=== PATIENT | male | born 1970 | race Caucasian/White ===

== ENCOUNTER 2016-06-19 14:11 | Inpatient (IN) ==
[2016-06-19] MEDS ORDERED: SODIUM CHLORIDE 0.9% 1,000 ML IV STA (16:38)
[2016-06-19 17:09] LABS: Basophils % 0.3 % (0.0-0.8); Eosinophils % 0.6 % (0.00-10.9); Hematocrit 43.2 VOL% (42.0-52.0); Hemoglobin 14.6 GM/DL (14.0-18.0); Immature Granulocytes % 0.3 %; Immature Granulocytes Absolute 0.01 #; Lymphocytes # 1.1 10*3/uL (1.4-4.0); Lymphocytes % 32.2 % (21.2-54.2); Mean Corpuscular HGB Conc 33.8 GM/DL (32-36); Mean Corpuscular Hemoglobin 28 PG (27-34); Mean Corpuscular Volume 82.6 FL (87-102); Mean Platelet Volume 9.2 FL (9.6-12.0); Monocytes # 0.4 10*3/uL (0.11-0.8); Monocytes % 12.6 % (1.7-12.7); Neutrophils # 1.9 10*3/uL (1.4-7.4); Platelet Count 138 T/CUMM (130-400); Red Blood Count 5.23 MC/CUMM (3.8-5.5); Red Cell Distribution Width 11.7 % (9.3-17.3); White Blood Count 3.4 T/CUMM (4-12)
[2016-06-19 17:29] LABS: Albumin 3.3 G/DL (3.4-5.0); Bilirubin,Total 0.7 MG/DL (0.2-1.0); Calcium 8.9 MG/DL (8.5-10.1); Magnesium 2.2 MG/DL (1.8-2.4); Osmolality,Calculated 283.4 MOS/KG (273-304); Potassium 4.7 MMOL/L (3.5-5.1); Total Protein 7.8 G/DL (6.4-8.3)
--- NOTE | 2016-06-19 17:38 | XRay Report ---
Referring Physician: Sudheer Harris Exam: XR chest 1V portable Date: June 19, 2016 at 4:46 PM Reason: Altered mental status Comparison: Chest 2 views June 14, 2016 Findings: The cardiac silhouette is normal in size. No focal consolidation, pneumothorax or pleural effusion is identified. No acute osseous process is seen. Impression: No acute cardiopulmonary process is identified. PROCEDURE INTERPRETED AT [facility] DEPARTMENT OF RADIOLOGY Final Report Signed by: Dr. Sary Ray
--- NOTE | 2016-06-19 17:39 | CT Report ---
History: Altered mental status. Confusion Date: 06/19/2016 Study: CT head without contrast Comparison exam: Head CT February 27, [address] sections were obtained through the head without IV contrast. This CT exam was performed using one or more the following dose reduction techniques: Automated exposure control, adjustment of the MA and/or KV according to patient size, or use of iterative reconstruction technique. The ventricles are midline in position without evidence of hydrocephalus. There is no mass or parenchymal hemorrhage. There is no gross CT evidence of acute cortical stroke. There is no extra-axial hematoma. There is no acute abnormality of the calvarium. The partially visualized paranasal sinuses and mastoid air cells are clear. Impression: No acute intracranial process PROCEDURE INTERPRETED AT [facility] DEPARTMENT OF RADIOLOGY Final Report Signed by: Dr. Estrella Rae
[2016-06-19 17:50] LABS: Apearance,Urine CLEAR (Clear); Bilirubin,Urine Negative (Negative); Blood, Urine Small mg/dL (Negative); Glucose,Urine (UA) >=500 mg/dL (Negative); Ketones,Urine 80 mg/dL (Negative); Mucus,Urine Occasional /LPF (Occasional); Nitrite,Urine Negative (Negative); Protein,Urine 100 MG/DL; RBC,Urine 7 /HPF (0-4); Squamous Epithelial Cell,Urine Occasional /HPF (0-10); Urine Color Yellow (Yellow); Urine Specific Gravity 1.023 (1.001-1.035); Urine Urobilinogen < 2.0 EU/DL (0.2-1.0); WBC,Urine 2 /HPF (0-6)
[2016-06-19] MEDS ORDERED: INSULIN REGULAR 100 UNIT/ML SUBCUT STA (18:24)
[2016-06-19 18:26] LABS: Barbiturates Screen,Urine Negative (Negative); Benzodiazepines Screen,Urine Negative (Negative); Cannabinoid Screen,Urine Negative (Negative); Opiate Screen,Urine Negative (Negative); Phencyclidine Screen,Urine Negative (Negative)
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
[2016-06-19] MEDS ORDERED: INSULIN REGULAR 100 UNIT/ML ONE ×2 (18:43→19:05)
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
[2016-06-19] MEDS ORDERED: SODIUM CHLORIDE 0.9% 1,000 ML IV ONE ×2 (19:06→22:34)
[2016-06-19] MEDS ORDERED: INSULIN REGULAR 100 UNIT/ML IV STA (19:06)
[2016-06-19] MEDS ORDERED: SODIUM BICARB INJ 100 MEQ in STERILE WATER INJ 400 ML IV PRN (22:34)
[2016-06-19] MEDS ORDERED: MAGNESIUM SULF RIDER 4 GM in PREMIX 1 EACH IV PRN (22:34)
[2016-06-19] MEDS ORDERED: DEXTROSE 50% 25 GM/50 ML VIAL IV PRN ×2 (22:34)
[2016-06-19] MEDS ORDERED: POTASSIUM CHLORIDE RIDER 10 MEQ in PREMIX 1 EACH IV PRN (22:34)
[2016-06-19] MEDS ORDERED: MAGNESIUM SULF RIDER 2 GM in PREMIX 1 EACH IV PRN (22:34)
[2016-06-19] MEDS ORDERED: ALBUTEROL 2.5 MG/3 ML NEB RESP TX PRN (22:34)
[2016-06-19] MEDS ORDERED: SODIUM PHOSPHATE INJ 14.7 MMOL in SODIUM CHLORIDE 0.9% 250 ML IV PRN (22:34)
[2016-06-19] MEDS ORDERED: ACETAMINOPHEN 325 MG TABLET PO PRN (22:34)
[2016-06-19] MEDS: SODIUM CHLORIDE 0.9% 1,000 ML IV SCH (22:53)
[2016-06-19] MEDS: LACOSAMIDE INJ 100 MG in SODIUM CHLORIDE 0.9% 50 ML IV SCH (23:27)
[2016-06-19 23:50] LABS: Osmolality,Calculated 280.7 MOS/KG (273-304)
[2016-06-20] LABS: Magnesium 1.9 MG/DL (1.8-2.4); Thyroid Stimulating Hormone 0.862 uIU/ml (0.358-3.74)
[2016-06-20] MEDS: ALBUTEROL/IPRATROPIUM 3 ML NEB RESP TX SCH ×7 (00:28→23:29)
[2016-06-20] MEDS: INSULIN REGULAR DRIP 100 ML IV SCH ×2 (00:29→08:20)
[2016-06-20] MEDS: SODIUM CHLORIDE 0.9% 1,000 ML IV SCH ×4 (00:29→06:32)
[2016-06-20] MEDS ORDERED: INSULIN REGULAR 100 UNIT/ML ONE (01:16)
[2016-06-20] MEDS: INSULIN REGULAR 100 UNIT/ML SUBCUT SCH ×2 (01:17→04:26)
[2016-06-20] MEDS ORDERED: SODIUM CHLORIDE 0.9% 1,000 ML IV SCH (01:37)
[2016-06-20] MEDS: ONDANSETRON 4 MG/2 ML VIAL IV PRN ×2 (02:23→13:38)
[2016-06-20] MEDS ORDERED: ALUMINUM/MAGNES/SIMETH MAX STR 30 ML UDCUP PO PRN (02:59)
[2016-06-20 05:34] LABS: Basophils % 0.2 % (0.0-0.8); Eosinophils % 0.2 % (0.00-10.9); Hematocrit 36.5 VOL% (42.0-52.0); Immature Granulocytes % 0.4 %; Immature Granulocytes Absolute 0.02 #; Lymphocytes # 0.7 10*3/uL (1.4-4.0); Lymphocytes % 13.8 % (21.2-54.2); Mean Corpuscular HGB Conc 32.9 GM/DL (32-36); Mean Corpuscular Hemoglobin 28 PG (27-34); Mean Corpuscular Volume 83.7 FL (87-102); Mean Platelet Volume 9.1 FL (9.6-12.0); Monocytes # 0.4 10*3/uL (0.11-0.8); Monocytes % 7.3 % (1.7-12.7); Neutrophils # 3.8 10*3/uL (1.4-7.4); Neutrophils % 78.1 % (38.7-73.9); Platelet Count 118 T/CUMM (130-400); Red Blood Count 4.36 MC/CUMM (3.8-5.5); Red Cell Distribution Width 11.9 % (9.3-17.3); White Blood Count 4.9 T/CUMM (4-12)
[2016-06-20 06:03] LABS: Calcium 7.7 MG/DL (8.5-10.1); Magnesium 1.9 MG/DL (1.8-2.4); Osmolality,Calculated 288.4 MOS/KG (273-304); Potassium 4.5 MMOL/L (3.5-5.1)
[2016-06-20 06:12] LABS: Albumin 2.6 G/DL (3.4-5.0); Bilirubin,Total 0.6 MG/DL (0.2-1.0); Calcium 7.7 MG/DL (8.5-10.1); Magnesium 1.9 MG/DL (1.8-2.4); Osmolality,Calculated 287.4 MOS/KG (273-304); Potassium 4.5 MMOL/L (3.5-5.1); Total Protein 6.1 G/DL (6.4-8.3)
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
[2016-06-20 07:33] LABS: ABG Base Excess -5.9 MMOL/L (-2.5-2.5); ABG HCO3 19.7 MMOL/L (20-26); ABG Oxygen Saturation 96.8 % (95-100); ABG PCO2 38.9 MM HG (35-48); ABG PH 7.322 (7.35-7.45); ABG PO2 95.4 MM HG (80-95); ABG TCO2 20.9 MMOL/L (23-27)
[2016-06-20] MEDS ORDERED: INSULIN REGULAR 100 UNIT/ML IV SCH (08:00)
[2016-06-20] MEDS: SODIUM CHLORIDE 0.45% 2,000 ML IV SCH ×2 (08:10→13:52)
[2016-06-20 08:55] LABS: Calcium 7.9 MG/DL (8.5-10.1); Osmolality,Calculated 287.3 MOS/KG (273-304); Potassium 4.2 MMOL/L (3.5-5.1)
[2016-06-20] MEDS ORDERED: POTASSIUM PHOSPHATE 30 MMOL in SODIUM CHLORIDE 0.9% 250 ML IV ONE (09:00)
[2016-06-20] MEDS: PANTOPRAZOLE 40 MG TABLET PO SCH (09:56)
[2016-06-20] MEDS: AZITHROMYCIN 250 MG TABLET PO SCH (09:56)
[2016-06-20] MEDS: LACOSAMIDE INJ 100 MG in SODIUM CHLORIDE 0.9% 50 ML IV SCH ×2 (10:00→20:14)
[2016-06-20] MEDS: DEXTROSE 5% NACL 0.45% 1,000 ML IV SCH ×2 (10:30→19:38)
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
--- NOTE | 2016-06-20 13:14 | Hospitalist Progress Note ---
Assessment and Plan (1) Nausea & vomiting Status: Acute Assessment and plan: galo clemente, Dr. Rae to see, clear liquids Current Visit: Yes (2) Uncontrolled diabetes mellitus Status: Chronic Assessment and plan: gap has widened, restart insulin drip and add D5 to flluid through protocol Current Visit: No Qualifiers: Diabetes mellitus type: type 1 Diabetes mellitus complication detail: with peripheral angiopathy with gangrene (3) Diabetic foot ulcer Status: Chronic Assessment and plan: wound care consult Current Visit: No (4) Dehydration Status: Acute Assessment and plan: cont 1/2 ns at 250 ml/hr Current Visit: No (5) Seizure disorder Status: Acute Assessment and plan: cont vimpat 100 mg IV bid Current Visit: Yes (6) Neutropenia Status: Inactive Assessment and plan: Pancytopenia due to illness per Dr. Ocampo no further workup Current Visit: No (7) Bronchitis Status: Acute Assessment and plan: cont azithromycin, no steroids, duonebs Current Visit: Yes (8) Hypotension Status: Acute Assessment and plan: resolved with hydration Current Visit: No Hospitalist: Subjective Interval history: Patient's insulin drip was discontinued last night which worsened his DKA. Sliding scale insulin is not appropriate for somebody in DKA. His gap has widened and I put him back on insulin drip and added D5 to his fluids. Until his Closes he is not to be taken off an insulin drip. We will feed him clear liquids today. Dr. Rae is yet to see him patients still feels very nauseated today Exam - Constitutional Vitals: Period Temp Pulse Resp BP Sys/Cummings Pulse Ox Last 24 Hr 98.8 F-100.9 F 78-101 16-29 93-154/49-89 94-100 Exam: Heart Rate-[tachy ] Lungs-[CTAB] GI-[+bs soft, NT] Ext-[no edema] Neuro [Motor 5/5], [alert and oriented times 3] psych [normal mood and affect] General [no acute distress] Results - Labs CBC & BMP: 06/20/16 05:21 06/20/16 08:09 Lab Results: I have reviewed the past 24 hour labs
[2016-06-20] MEDS ORDERED: SODIUM CHLORIDE 0.45% 1,000 ML IV SCH (13:37)
[2016-06-20 14:22] LABS: Calcium 7.5 MG/DL (8.5-10.1); Osmolality,Calculated 280.5 MOS/KG (273-304)
[2016-06-20] MEDS: SODIUM CHLORIDE 0.45% 1,000 ML IV SCH ×2 (15:30→22:08)
[2016-06-20] MEDS: INSULIN GLARGINE 100 UNIT/ML SUBCUT SCH ×2 (17:28→17:29)
[2016-06-20] MEDS ORDERED: INSULIN LISPRO 100 UNIT/ML SUBCUT SCH ×3 (18:00→20:30)
[2016-06-20 20:11] LABS: Calcium 7.3 MG/DL (8.5-10.1); Osmolality,Calculated 282.7 MOS/KG (273-304); Potassium 4.2 MMOL/L (3.5-5.1)
[2016-06-20] MEDS: BENZONATATE 100 MG CAPSULE PO PRN (20:14)
[2016-06-20] MEDS ORDERED: INSULIN GLARGINE 100 UNIT/ML SUBCUT SCH (21:00)
[2016-06-21] MEDS: INSULIN LISPRO 100 UNIT/ML SUBCUT SCH ×6 (00:42→17:20)
[2016-06-21] MEDS: ALBUTEROL/IPRATROPIUM 3 ML NEB RESP TX SCH ×5 (03:54→18:58)
[2016-06-21] MEDS: SODIUM CHLORIDE 0.45% 1,000 ML IV SCH ×3 (04:59→09:47)
[2016-06-21 07:52] LABS: Basophils % 0.2 % (0.0-0.8); Eosinophils # 0.1 10*3/uL (0.0-0.87); Eosinophils % 1.9 % (0.00-10.9); Hematocrit 33.8 VOL% (42.0-52.0); Hemoglobin 11.7 GM/DL (14.0-18.0); Immature Granulocytes % 0.2 %; Immature Granulocytes Absolute 0.01 #; Lymphocytes # 1.5 10*3/uL (1.4-4.0); Lymphocytes % 30.2 % (21.2-54.2); Mean Corpuscular HGB Conc 34.6 GM/DL (32-36); Mean Corpuscular Hemoglobin 28 PG (27-34); Mean Corpuscular Volume 79.3 FL (87-102); Mean Platelet Volume 9.3 FL (9.6-12.0); Monocytes # 0.4 10*3/uL (0.11-0.8); Monocytes % 8.3 % (1.7-12.7); Neutrophils # 2.9 10*3/uL (1.4-7.4); Neutrophils % 59.2 % (38.7-73.9); Platelet Count 131 T/CUMM (130-400); Red Blood Count 4.26 MC/CUMM (3.8-5.5); Red Cell Distribution Width 11.9 % (9.3-17.3); White Blood Count 4.8 T/CUMM (4-12)
[2016-06-21 08:15] LABS: Band Neutrophils 2 % (0-10); Eosinophils 2 % (0-10); Hypochromasia 1+; Lymphocytes 33 % (20-55); Ovalocytes Slight; Platelet Estimate Normal; Segmented Neutrophils 57 % (50-85); Total Cells Counted 100
[2016-06-21 08:19] LABS: Calcium 7.8 MG/DL (8.5-10.1); Osmolality,Calculated 273.8 MOS/KG (273-304); Potassium 3.9 MMOL/L (3.5-5.1)
[2016-06-21] MEDS: PANTOPRAZOLE 40 MG TABLET PO SCH (09:46)
[2016-06-21] MEDS: AZITHROMYCIN 250 MG TABLET PO SCH (09:46)
[2016-06-21] MEDS: INSULIN GLARGINE 100 UNIT/ML SUBCUT SCH ×2 (09:46→21:49)
[2016-06-21] MEDS: BENZONATATE 100 MG CAPSULE PO PRN ×2 (09:46→18:15)
[2016-06-21] MEDS: LACOSAMIDE INJ 100 MG in SODIUM CHLORIDE 0.9% 50 ML IV SCH (10:11)
[2016-06-21] MEDS: ONDANSETRON 4 MG/2 ML VIAL IV PRN (10:37)
--- NOTE | 2016-06-21 12:21 | Hospitalist Progress Note ---
Assessment and Plan (1) Nausea & vomiting Status: Acute Assessment and plan: Improving Dr. Rae will do an EGD today. Current Visit: Yes (2) Uncontrolled diabetes mellitus Status: Chronic Assessment and plan: Blood sugars better controlled continue Lantus 25 units twice a day Current Visit: No Qualifiers: Diabetes mellitus type: type 1 Diabetes mellitus complication detail: with peripheral angiopathy with gangrene (3) Diabetic foot ulcer Status: Chronic Assessment and plan: Chronic no evidence of acute infection Current Visit: No (4) Dehydration Status: Acute Assessment and plan: Resolved Current Visit: No (5) Seizure disorder Status: Acute Assessment and plan: cont vimpat 100 mg po bid Current Visit: Yes (6) Neutropenia Status: Inactive Assessment and plan: Resolved. Dr. Blakely thinks that she is due to the acute illness Current Visit: No (7) Bronchitis Status: Acute Assessment and plan: cont azithromycin, no steroids, duonebs Current Visit: Yes (8) Hypotension Status: Acute Assessment and plan: resolved with hydration Current Visit: No (9) Homicidal ideation Status: Acute Assessment and plan: Continue one-to-one sitter, ready to go to psychiatric facility tomorrow. Current Visit: Yes Hospitalist: Subjective Interval history: Patient reports still be nauseated. We will he will remain with a sitter. He is willing to go to [place] for counseling. Patient will get an EGD today. He will be ready to discharge to psych in a.m. His DKA has resolved. His dehydration has resolved. Exam - Constitutional Vitals: Period Temp Pulse Resp BP Sys/Cummings Pulse Ox Last 24 Hr 99 F-100.0 F 84-109 12-35 99-152/56-99 93-100 Exam: Heart Rate-[tachy ] Lungs-[CTAB] GI-[+bs soft, NT] Ext-[no edema] Neuro [Motor 5/5], [alert and oriented times 3] psych [normal mood and affect] General [no acute distress] Results - Labs CBC & BMP: 06/21/16 07:40 06/21/16 07:40 Lab Results: I have reviewed the past 24 hour labs Labs: Blood cultures negative no growth
--- NOTE | 2016-06-21 13:01 | History and Physical Update ---
History and Physical Update - History and Physical H&P was reviewed, the patient examined and there: are no changes in the patients condition since last H&P was completed. - Physical Exam Mental Status: alert and oriented Heart: regular rate and rhythm Lung: clear to auscultation Abdomen: within normal limits Vitals: within normal limits
--- NOTE | 2016-06-21 13:04 | Operative Note ---
Date of procedure: 06/21/16 Pre-op diagnosis: Nausea/vomiting, atypical chest pain Procedure: Procedure: Esophagogastroduodenoscopy Brief clinical abstract: Patient is a 46-year-old male who has had recent nausea /vomiting and epigastric/atypical chest pain over the last week. Liver tests have been normal. No gross GI bleeding has been noted. Indication for procedure: Recurrent nausea/vomiting, atypical chest pain Endoscopic findings:[After informed consent was obtained, the patient was placed in the left lateral decubitus position. The gastroscope was inserted in the upper esophagus under direct vision with no resistance encountered. Esophageal mucosa appeared normal with squamocolumnar junction sharply demarcated above a small hiatal hernia. The endoscope was advanced in the stomach which was carefully examined including retroflexed view of the cardia and fundus with no abnormality seen. The pyloric channel, duodenal bulb, second and third portion of the duodenum were normal. The endoscope was withdrawn and no other abnormalities were visualized. Impression: Small hiatal hernia-otherwise normal EGD Recommendations: Ultrasound gallbladder/upper abdomen. Could try to advance diet. Anesthesia: MAC Surgeon / Physician: Roosevelt Rae Estimated blood loss: none Specimens: none sent Condition: stable Disposition: post procedure unit Results - Labs CBC & BMP: 06/21/16 07:40 06/21/16 07:40 Discharge Plan - Discharge Medications No Action Albuterol Inhaler [Proventil Inhaler] 2 puff INH Q4H PRN #1 inhaler PRN Reason: Shortness Of Breath/Wheezing Azithromycin Tab [Zithromax Tab] 250 mg PO DAILY Lacosamide Tab [Vimpat Tab] 100 mg PO BID #120 tablet Insulin Glargine [Lantus] 25 unit SUBCUT BID Insulin Regular [HumuLIN R] 10 unit SUBCUT TIDAC Benzonatate [Tessalon] 100 mg PO TID PRN #30 capsule PRN Reason: Cough - Follow Up or Referral - Forms/Instructions
[2016-06-21] MEDS ORDERED: PROPOFOL 200 MG/20 ML VIAL IV ONE (13:07)
[2016-06-21] MEDS ORDERED: LIDOCAINE 2% 5 ML VIAL ONE (13:07)
--- NOTE | 2016-06-21 13:43 | Anesthesia Post-Op ---
Anesthesia Post OP - Post Ansesthetic Evaluation Patient seen in post op: Yes Resp: within normal limits CV: within normal limits Mental: within normal limits Temp: within normal limits Xrza-Eq-Vagegjztb: within normal limits Nausea and Vomiting: within normal limits Pain: within normal limits
[2016-06-21] MEDS: LACOSAMIDE 50 MG TABLET PO SCH ×2 (15:29→21:48)
--- NOTE | 2016-06-21 16:06 | Ultrasound Report ---
Referring Physician: Alexus Mauricio Exam: US abdomen limited Date: June 21, 2016 Reason: Persistent nausea Comparison: Abdominal ultrasound February 28, 2016 Technique: Grayscale ultrasound images of the right abdomen were obtained. Ultrasound images were captured and stored. Findings: The liver measures 14.5 cm in length. No suspicious hepatic lesion is identified. No gallstones are seen. No abnormal gallbladder wall thickening or pericholecystic fluid is identified. The common bile duct is normal in size, measuring 0.2 cm in diameter. The pancreas is largely obscured by bowel gas. The right kidney measures 12.5 x 6.6 x 5.7 cm. No right hydronephrosis or suspicious renal lesion is identified. The IVC and abdominal aorta are largely obscured by bowel gas. No ascites is seen. Impression: No acute abdominal process is identified. PROCEDURE INTERPRETED AT [facility] DEPARTMENT OF RADIOLOGY Final Report Signed by: Dr. Sary Ray
[2016-06-22] MEDS: ALBUTEROL/IPRATROPIUM 3 ML NEB RESP TX SCH ×5 (00:20→14:21)
[2016-06-22] MEDS: INSULIN LISPRO 100 UNIT/ML SUBCUT SCH ×2 (02:20→07:30)
[2016-06-22] MEDS: BENZONATATE 100 MG CAPSULE PO PRN ×2 (02:47→09:26)
--- NOTE | 2016-06-22 08:09 | Nuclear Medicine Report ---
NM hepatobiliary Indication: Persistent nausea and vomiting. Comparison: None. Technique: Following intravenous administration of 5 millicuries of technetium 99m labeled Choletec, planar imaging in anterior projection was performed at regular intervals through 60 minutes. Following this, a total of 1.4 micrograms of sincalide were administered intravenously and time activity curve was plotted during gallbladder emptying. Findings: Normal distribution of Choletec is demonstrated within the liver parenchyma. Homogeneous activity is present. Concentration and excretion of Choletec via the biliary system into the small bowel appears within normal limits. The gallbladder is noted to fill by 10 minutes postinjection. No emptying of the gallbladder is demonstrated at 20 minutes post injection of CCK. Impression: 1. There is no evidence of cystic duct obstruction or obstruction of the extrahepatic bile duct. No significant emptying of the gallbladder occurs following injection of CCK and differential considerations include nonfasting state, recent pain medication, as well as chronic cholecystitis. 06/22/2016 8:05 AM PROCEDURE INTERPRETED AT [facility] DEPARTMENT OF RADIOLOGY Final Report Signed by: Dr. Hugh Stoddard
[2016-06-22 08:18] LABS: Basophils % 0.3 % (0.0-0.8); Eosinophils # 0.1 10*3/uL (0.0-0.87); Eosinophils % 2.4 % (0.00-10.9); Hematocrit 35.7 VOL% (42.0-52.0); Hemoglobin 12.1 GM/DL (14.0-18.0); Immature Granulocytes % 0.3 %; Immature Granulocytes Absolute 0.01 #; Lymphocytes # 1.2 10*3/uL (1.4-4.0); Lymphocytes % 31.2 % (21.2-54.2); Mean Corpuscular HGB Conc 33.9 GM/DL (32-36); Mean Corpuscular Hemoglobin 28 PG (27-34); Mean Corpuscular Volume 81.7 FL (87-102); Mean Platelet Volume 8.9 FL (9.6-12.0); Monocytes # 0.3 10*3/uL (0.11-0.8); Monocytes % 7.8 % (1.7-12.7); Neutrophils # 2.2 10*3/uL (1.4-7.4); Platelet Count 156 T/CUMM (130-400); Red Blood Count 4.37 MC/CUMM (3.8-5.5); Red Cell Distribution Width 11.7 % (9.3-17.3); White Blood Count 3.7 T/CUMM (4-12)
[2016-06-22 08:45] LABS: Band Neutrophils 2 % (0-10); Eosinophils 4 % (0-10); Lymphocytes 25 % (20-55); Segmented Neutrophils 62 % (50-85); Total Cells Counted 100
[2016-06-22 08:46] LABS: Hypochromasia 1+; Ovalocytes Slight; Platelet Estimate Normal
--- NOTE | 2016-06-22 08:59 | Gastrointestinal Progress Note ---
<KalibisiDona Bayron - Last Filed: 06/22/16 08:57> Assessment and Plan (1) Nausea & vomiting Status: Acute Assessment and plan: 06/22-nausea and vomiting resolved. No reports abdominal pain. Tolerating diet. Ultrasound and HIDA scan results noted. Plan an addendum to followed by Dr. Rae. 06/20-several day history of nausea and vomiting with abdominal pain and associated symptoms of bronchitis and cough. Negative head CT. Recent NSAID use. No prior endoscopy in the past. Plan an addendum to followed by Dr. Rae. Current Visit: Yes Gastroenterology - PN: Subj Interval history: CC: Nausea, vomiting, atypical chest pain Patient is seen awake and alert sitting up in bed. States he is feeling some better at this time. He states his nausea, vomiting and epigastric pain is resolved at this time. His main complaint is just some chest wall pain due to his constant coughing related to bronchitis. EGD on yesterday showed small hiatal hernia otherwise normal findings. Gallbladder ultrasound was noted to be negative however HIDA scan is noted to show no emptying of the gallbladder. Abdomen soft, nontender. He is tolerating full liquid diet at present time. ROS: Denies shortness of breath or chest pain Exam (Progress Note) - Constitutional Vitals: Period Temp Pulse Resp BP Sys/Cummings Pulse Ox Last 24 Hr 97.0 F-98.8 F 88-106 14-26 124-157/72-99 93-100 General appearance: normal weight, no acute distress - Head Head exam: Present: normal inspection, normocephalic - Eye Eye exam: Present: other (Lids and conjunctive are unremarkable). Absent: scleral icterus - ENT ENT exam: Present: normal exam, normal oropharynx - Neck Neck exam: Present: normal inspection - Respiratory Respiratory exam: Present: clear to auscultation bilaterally. Absent: rales, rhonchi, wheezes - Cardiovascular Cardiovascular exam: Present: regular rate and rhythm. Absent: diastolic murmur , JVD, systolic murmur - GI/Abdominal GI/Abdominal exam: Present: normal bowel sounds, soft. Absent: ascites, distended, mass, organomegaly, tenderness - Extremities Exam Extremities exam: Present: normal inspection, full ROM - Back Exam Back exam: Present: normal inspection - Neurological Exam Neurological exam: Present: alert, oriented X3 - Psychiatric Psychiatric exam: Present: normal affect, normal mood - Skin Skin exam: Present: normal color, warm, dry Results - Labs CBC & BMP: 06/22/16 08:04 06/21/16 07:40 Lab Results: I have reviewed the past 24 hour labs <Roosevelt Rae - Last Filed: 06/22/16 13:43> Exam (Progress Note) - Constitutional Vitals: Period Temp Pulse Resp BP Sys/Cummings Pulse Ox Last 24 Hr 97.0 F-98.8 F 90-106 16-20 127-157/72-95 93-100 Results - Labs CBC & BMP: 06/22/16 08:04 06/21/16 07:40
[2016-06-22] MEDS: LACOSAMIDE 50 MG TABLET PO SCH (09:26)
[2016-06-22] MEDS: PANTOPRAZOLE 40 MG TABLET PO SCH (09:26)
[2016-06-22] MEDS: AZITHROMYCIN 250 MG TABLET PO SCH (09:26)
[2016-06-22] MEDS: INSULIN GLARGINE 100 UNIT/ML SUBCUT SCH (09:32)
[2016-06-22] MEDS ORDERED: DIPHENOXYLATE/ATROPINE 2.5-0.025 MG TABLET PO PRN (09:56)
--- NOTE | 2016-06-22 10:08 | Discharge Summary ---
Hospital Course - Hospital Course Hospital Course: 46-year-old male presents multiple times to the emergency room with complaints of nausea and vomiting and confusion. This is the third visit to the emergency room this week. His Kayy gives a history that patient was recently diagnosed with bronchitis and was started on azithromycin. He has not been taking his insulin due to not eating well. Repeat chest x-ray in the emergency room shows no evidence of pneumonia. His nausea and vomiting thought initially was due to DKA. Patient was in DKA on admission but was reversed with IV fluids and IV insulin. His blood sugars are now well controlled on Lantus twice a day. Patient's nausea and vomiting did not completely resolve when he was no longer in DKA. I consult Dr. Rae to see him. An EGD was performed on 06/21/16 which showed only a mild hiatal hernia but nothing to explain his continuous nausea. Dr. Rae ordered an ultrasound of the gallbladder which looked normal. HIDA scan was performed and it was also normal. He had a normal lipase and is nontender on exam. We will advance patient to a soft diet which she is tolerating well. Patient also has a history of neutropenia. He was seen by Dr. Ocampo from hematology who feels this is secondary to illness only and no further workup is necessary. Patient has a chronic diabetic foot ulcer that is not actively infected. Patient was hypotensive on admission due to dehydration but that is completely resolved. Patient's DKA is resolved and he has been out of the unit in stable. Patient has a chronic seizure disorder that is well controlled on Vimpat. Patient has problems with both depression and anxiety and his reports the patient is having daily episodes thinking he is somebody else. He also has been reading biblical texts which talk about sacrifice and acts on these impulses. Patient' s has had to hide the knives as he talks about stabbing people. We dont have a psychiatrist available to see patients and I am not qualified to handle psychiatric patients with these problems. Because of his medical issues most psychiatric facilities are uncomfortable handling patients on insulin. Patient is medically stable and ready for transfer to psychiatric facility today. - Time spent with patient Time with patient DS: Greater than 30 minutes (50 min) Diagnosis - Discharge Diagnosis (1) Nausea & vomiting Status: Acute (2) Uncontrolled diabetes mellitus Status: Chronic (3) Diabetic foot ulcer Status: Chronic (4) Dehydration Status: Acute (5) Seizure disorder Status: Acute (6) Neutropenia Status: Inactive (7) Bronchitis Status: Acute (8) Hypotension Status: Acute (9) Homicidal ideation Status: Acute Discharge Plan - Discharge Data Disposition: Disch/Xfer to Psych Hos Condition at Discharge: Stable Discharge Diet: diabetic diet Activity: resume usual activities as tolerated Hygiene: no restrictions Weight Bearing at Discharge: full weight bearing - Discharge Medications New Diphenoxylate/Atrop 2.5-0.025 [Lomotil Tab] 1 tablet PO Q4H PRN #0 tablet PRN Reason: Diarrhea Insulin Glargine [Lantus] 25 unit SUBCUT DAILY unit Ondansetron Inj [Zofran Inj] 4 mg IV Q4H PRN #0 vial PRN Reason: Nausea Pantoprazole Tab [Protonix Tab] 40 mg PO DAILY tablet Alum/Mag/Simeth Max Str Liquid [Mylanta Max Strength Liquid] 30 ml PO Q4H PRN #0 PRN Reason: Dyspepsia Continue Albuterol Inhaler [Proventil Inhaler] 2 puff INH Q4H PRN #1 inhaler PRN Reason: Shortness Of Breath/Wheezing Azithromycin Tab [Zithromax Tab] 250 mg PO DAILY Lacosamide Tab [Vimpat Tab] 100 mg PO BID #120 tablet Benzonatate [Tessalon] 100 mg PO TID PRN #30 capsule PRN Reason: Cough Changed Insulin Glargine [Lantus] 17 unit SUBCUT QPM #0 Discontinued Insulin Regular [HumuLIN R] 10 unit SUBCUT TIDAC - Follow Up or Referral - Forms/Instructions Exam - Constitutional Vitals: Period Temp Pulse Resp BP Sys/Cummings Pulse Ox Last 24 Hr 97.0 F-98.8 F 88-106 14-26 127-157/72-99 93-100 General appearance: normal weight, no acute distress - Respiratory Respiratory exam: Present: clear to auscultation bilaterally. Absent: rhonchi, wheezes - Cardiovascular Cardiovascular exam: Present: regular rate and rhythm. Absent: systolic murmur - GI/Abdominal GI/Abdominal exam: Present: normal bowel sounds, soft. Absent: tenderness - Extremities Exam Extremities exam: Present: normal inspection, normal capillary refill - Neurological Exam Neurological exam: Present: alert, oriented X3. Absent: motor sensory deficit - Psychiatric Psychiatric exam: Present: depressed, flat affect Discharge Results Labs on day of discharge: Labs from last 24 hours 06/22/16 06/22/16 06/22/16 08:04 08:04 07:59 WBC 3.7 L RBC 4.37 Hgb 12.1 L Hct 35.7 L MCV 81.7 L MCH 28 MCHC 33.9 RDW 11.7 Plt Count 156 MPV 8.9 L Neut % (Auto) 58.0 Lymph % (Auto) 31.2 [place] % (Auto) 7.8 Eos % (Auto) 2.4 Baso % (Auto) 0.3 Neut # (Auto) 2.2 Lymph # (Auto) 1.2 L [place] # (Auto) 0.3 Eos # (Auto) 0.1 Baso # (Auto) 0.0 Total Counted 100 Immature Gran % 0.3 Nucleated RBC % 0.0 Immature Gran # 0.01 Segmented Neutrophils 62 Band Neutrophils 2 Lymphocytes 25 Monocytes 7 Eosinophils 4 Nucleated RBCs # 0.00 Platelet Estimate Normal Hypochromasia 1+ Ovalocytes Slight Morphology Comment POC Glucose 207 H Lipase 94.0 06/22/16 06/22/16 06/21/16 05:01 01:07 23:52 WBC RBC Hgb Hct MCV MCH MCHC RDW Plt Count MPV Neut % (Auto) Lymph % (Auto) [place] % (Auto) Eos % (Auto) Baso % (Auto) Neut # (Auto) Lymph # (Auto) [place] # (Auto) Eos # (Auto) Baso # (Auto) Total Counted Immature Gran % Nucleated RBC % Immature Gran # Segmented Neutrophils Band Neutrophils Lymphocytes Monocytes Eosinophils Nucleated RBCs # Platelet Estimate Hypochromasia Ovalocytes Morphology Comment POC Glucose 162 H 100 52 L Lipase 06/21/16 06/21/16 20:06 17:33 WBC RBC Hgb Hct MCV MCH MCHC RDW Plt Count MPV Neut % (Auto) Lymph % (Auto) [place] % (Auto) Eos % (Auto) Baso % (Auto) Neut # (Auto) Lymph # (Auto) [place] # (Auto) Eos # (Auto) Baso # (Auto) Total Counted Immature Gran % Nucleated RBC % Immature Gran # Segmented Neutrophils Band Neutrophils Lymphocytes Monocytes Eosinophils Nucleated RBCs # Platelet Estimate Hypochromasia Ovalocytes Morphology Comment POC Glucose 132 H 109 H Lipase DS: Provider Date of admission: 06/20/16 13:10 Primary care physician: . No PCP Attending physician on admission: Alexus Mauricio MD Discharging clinician: Alexus Mauricio MD
[2016-06-22] MEDS: ONDANSETRON 4 MG/2 ML VIAL IV PRN (10:52)
[2016-06-22 15:46] VITALS: BP 121/71
== END 2016-06-22 15:45 | DRG 420 ==
LOC: N.ED 14:11 → N.EDINP 14:11 → N.CC 22:33 → N.4E 06-21 13:55
PROVIDERS: ADMIT Internal Medicine; ATTEND Internal Medicine

== ENCOUNTER 2016-12-03 14:50 | Observation (INO) ==
[2016-12-03] MEDS ORDERED: SODIUM CHLORIDE 0.9% 1,000 ML IV STA (15:25)
[2016-12-03 15:52] LABS: ABG Base Excess 0.6 MMOL/L (-2.5-2.5); ABG Oxygen Saturation 97.8 % (95-100); ABG PCO2 50.7 MM HG (35-48); ABG PH 7.338 (7.35-7.45); ABG TCO2 24.4 MMOL/L (23-27)
[2016-12-03 16:03] LABS: Basophils # 0.1 10*3/uL (0.0-0.2); Basophils % 0.7 % (0.0-0.8); Eosinophils # 0.2 10*3/uL (0.0-0.87); Eosinophils % 2.9 % (0.00-10.9); Hematocrit 34.4 VOL% (42.0-52.0); Immature Granulocytes % 0.3 %; Immature Granulocytes Absolute 0.02 #; Lymphocytes # 1.2 10*3/uL (1.4-4.0); Lymphocytes % 16.7 % (21.2-54.2); Mean Corpuscular HGB Conc 34.9 GM/DL (32-36); Mean Corpuscular Hemoglobin 28 PG (27-34); Mean Corpuscular Volume 80.4 FL (87-102); Mean Platelet Volume 9.1 FL (9.6-12.0); Monocytes # 0.5 10*3/uL (0.11-0.8); Neutrophils # 5.2 10*3/uL (1.4-7.4); Neutrophils % 72.4 % (38.7-73.9); Platelet Count 149 T/CUMM (130-400); Red Blood Count 4.28 MC/CUMM (3.8-5.5); White Blood Count 7.2 T/CUMM (4-12)
[2016-12-03 16:12] LABS: Apearance,Urine CLEAR (Clear); Bilirubin,Urine Negative (Negative); Blood, Urine Small mg/dL (Negative); Glucose,Urine (UA) >=500 mg/dL (Negative); Hyaline Casts,Urine 2 /LPF (0-3); Ketones,Urine Negative (Negative); Mucus,Urine Occasional /LPF (Occasional); Nitrite,Urine Negative (Negative); Protein,Urine 30 MG/DL; RBC,Urine 1 /HPF (0-4); Sperm,Urine Occasional /HPF (Negative); Urine Color Straw (Yellow); Urine Specific Gravity 1.006 (1.001-1.035); Urine Urobilinogen < 2.0 EU/DL (0.2-1.0); WBC,Urine 1 /HPF (0-6)
[2016-12-03 16:18] LABS: Barbiturates Screen,Urine Negative (Negative); Benzodiazepines Screen,Urine Negative (Negative); Cannabinoid Screen,Urine Negative (Negative); Opiate Screen,Urine Negative (Negative); Phencyclidine Screen,Urine Negative (Negative)
[2016-12-03 16:23] LABS: Ammonia 17 UMOL/L (11-32)
[2016-12-03 16:27] LABS: Lactic Acid 1.6 MMOL/L (0.4-2.0)
[2016-12-03 16:29] LABS: Alanine Aminotransferase 18 U/L (16-61); Albumin 3.5 G/DL (3.4-5.0); Alkaline Phosphatase 113 U/L (45-117); Aspartate Amino Transferase 14 U/L (0-37); Blood Urea Nitrogen 22 MG/DL (7-18); Calcium 8.8 MG/DL (8.5-10.1); Glucose 110 MG/DL (74-106); Osmolality,Calculated 276.8 MOS/KG (273-304); Potassium 3.5 MMOL/L (3.5-5.1); Sodium 137 MMOL/L (136-145); Total Protein 7.3 G/DL (6.4-8.3); Troponin I Only < 0.015 NG/ML (0.00-0.045)
[2016-12-03] MEDS ORDERED: ACETAMINOPHEN 325 MG TABLET PO PRN (18:26)
[2016-12-03] MEDS ORDERED: PROMETHAZINE 25 MG TABLET PO PRN (18:26)
[2016-12-03] MEDS ORDERED: ONDANSETRON 4 MG/2 ML VIAL IV PRN (18:26)
[2016-12-03] MEDS ORDERED: tiZANidine 4 MG TABLET PO PRN (18:30)
[2016-12-03] MEDS ORDERED: BENZONATATE 100 MG CAPSULE PO PRN (18:30)
[2016-12-03] MEDS ORDERED: DEXTROSE 50% 25 GM/50 ML VIAL IV PRN (18:30)
[2016-12-03] MEDS ORDERED: GLUCAGON 1 MG VIAL IM PRN (18:30)
[2016-12-03] MEDS: SODIUM CHLORIDE 0.9% 1,000 ML IV SCH (20:18)
[2016-12-03] MEDS: ENOXAPARIN 40 MG/0.4 ML SYRINGE SUBCUT SCH (20:34)
[2016-12-03] MEDS: LACOSAMIDE 50 MG TABLET PO SCH (20:35)
[2016-12-03] MEDS: ROSUVASTATIN 10 MG TABLET PO SCH (20:35)
[2016-12-03] MEDS: GABAPENTIN 300 MG CAPSULE PO SCH (20:37)
[2016-12-03] MEDS: INSULIN REGULAR 100 UNIT/ML SUBCUT SCH (22:45)
[2016-12-04] MEDS: SODIUM CHLORIDE 0.9% 1,000 ML IV SCH ×2 (06:14→16:45)
[2016-12-04 06:15] LABS: Basophils # 0.1 10*3/uL (0.0-0.2); Basophils % 0.9 % (0.0-0.8); Eosinophils # 0.3 10*3/uL (0.0-0.87); Eosinophils % 5.2 % (0.00-10.9); Hematocrit 35.1 VOL% (42.0-52.0); Hemoglobin 12.3 GM/DL (14.0-18.0); Immature Granulocytes % 0.2 %; Immature Granulocytes Absolute 0.01 #; Lymphocytes # 1.5 10*3/uL (1.4-4.0); Lymphocytes % 26.1 % (21.2-54.2); Mean Corpuscular Hemoglobin 28 PG (27-34); Mean Corpuscular Volume 80.7 FL (87-102); Mean Platelet Volume 9.9 FL (9.6-12.0); Monocytes # 0.4 10*3/uL (0.11-0.8); Monocytes % 7.2 % (1.7-12.7); Neutrophils # 3.4 10*3/uL (1.4-7.4); Neutrophils % 60.4 % (38.7-73.9); Platelet Count 185 T/CUMM (130-400); Red Blood Count 4.35 MC/CUMM (3.8-5.5); Red Cell Distribution Width 12.2 % (9.3-17.3); White Blood Count 5.6 T/CUMM (4-12)
[2016-12-04 06:44] LABS: Calcium 8.7 MG/DL (8.5-10.1); Osmolality,Calculated 282.3 MOS/KG (273-304); Potassium 4.1 MMOL/L (3.5-5.1)
[2016-12-04] MEDS: INSULIN REGULAR 100 UNIT/ML SUBCUT SCH ×6 (08:31→21:16)
[2016-12-04] MEDS: LACOSAMIDE 50 MG TABLET PO SCH ×2 (08:56→21:14)
[2016-12-04] MEDS: PANTOPRAZOLE 40 MG TABLET PO SCH (08:56)
[2016-12-04] MEDS: SERTRALINE 100 MG TABLET PO SCH (08:56)
[2016-12-04] MEDS ORDERED: GLUCAGON 1 MG VIAL IM PRN (11:27)
[2016-12-04] MEDS ORDERED: DEXTROSE 50% 25 GM/50 ML VIAL IV PRN (11:27)
[2016-12-04] MEDS ORDERED: PANTOPRAZOLE 40 MG TABLET PO SCH (11:30)
[2016-12-04] MEDS: SILVER SULFADIAZINE 1% CREAM 25 GM TUBE TOP SCH (14:07)
[2016-12-04] MEDS ORDERED: INSULIN GLARGINE 100 UNIT/ML SUBCUT SCH (21:00)
[2016-12-04] MEDS: ROSUVASTATIN 10 MG TABLET PO SCH (21:15)
[2016-12-04] MEDS: GABAPENTIN 300 MG CAPSULE PO SCH (21:15)
[2016-12-04] MEDS: ENOXAPARIN 40 MG/0.4 ML SYRINGE SUBCUT SCH (21:19)
[2016-12-05] MEDS: SODIUM CHLORIDE 0.9% 1,000 ML IV SCH (02:30)
[2016-12-05 07:02] LABS: Calcium 7.9 MG/DL (8.5-10.1); Osmolality,Calculated 285.3 MOS/KG (273-304); Potassium 3.7 MMOL/L (3.5-5.1)
[2016-12-05] MEDS: LACOSAMIDE 50 MG TABLET PO SCH (08:56)
[2016-12-05] MEDS: SERTRALINE 100 MG TABLET PO SCH (08:56)
[2016-12-05] MEDS: INSULIN REGULAR 100 UNIT/ML SUBCUT SCH ×4 (08:56→12:53)
[2016-12-05] MEDS: PANTOPRAZOLE 40 MG TABLET PO SCH (08:56)
[2016-12-05] MEDS: SILVER SULFADIAZINE 1% CREAM 25 GM TUBE TOP SCH (08:57)
[2016-12-05 12:20] VITALS: BP 164/89
== END 2016-12-05 15:19 | disposition home or self-care (01) ==
LOC: EDUNIT# → EDBD → N.EDINP 14:50 → N.ED 14:50 → N.2E 19:07

== ENCOUNTER 2017-06-06 09:46 | Inpatient (IN) ==
[2017-06-06 10:42] LABS: Basophils # 0.1 10*3/uL (0.0-0.2); Basophils % 0.8 % (0.0-0.8); Eosinophils # 0.2 10*3/uL (0.0-0.87); Hematocrit 31.2 VOL% (42.0-52.0); Hemoglobin 11.2 GM/DL (14.0-18.0); Immature Granulocytes % 0.5 %; Immature Granulocytes Absolute 0.04 #; Lymphocytes # 1.1 10*3/uL (1.4-4.0); Lymphocytes % 14.4 % (21.2-54.2); Mean Corpuscular HGB Conc 35.9 GM/DL (32-36); Mean Corpuscular Hemoglobin 29 PG (27-34); Mean Corpuscular Volume 79.4 FL (87-102); Mean Platelet Volume 8.9 FL (9.6-12.0); Monocytes # 0.6 10*3/uL (0.11-0.8); Monocytes % 7.5 % (1.7-12.7); Neutrophils # 5.7 10*3/uL (1.4-7.4); Neutrophils % 73.8 % (38.7-73.9); Platelet Count 234 T/CUMM (130-400); Red Blood Count 3.93 MC/CUMM (3.8-5.5); Red Cell Distribution Width 11.3 % (9.3-17.3); White Blood Count 7.7 T/CUMM (4-12)
[2017-06-06 11:04] LABS: Lactic Acid 0.9 MMOL/L (0.4-2.0)
[2017-06-06 11:17] LABS: Alanine Aminotransferase 9 U/L (16-61); Albumin 2.3 G/DL (3.4-5.0); Alkaline Phosphatase 156 U/L (45-117); Aspartate Amino Transferase 10 U/L (0-37); Bilirubin,Total < 0.39 MG/DL (0.2-1.0); Blood Urea Nitrogen 15 MG/DL (7-18); Calcium 8.1 MG/DL (8.5-10.1); Osmolality,Calculated 284.4 MOS/KG (273-304); Potassium 4.6 MMOL/L (3.5-5.1); Sodium 126 MMOL/L (136-145); Total Protein 6.5 G/DL (6.4-8.3)
[2017-06-06 11:20] LABS: Glucose 653 MG/DL (74-106)
[2017-06-06] MEDS ORDERED: INSULIN REGULAR 100 UNIT/ML SUBCUT STA (11:20)
[2017-06-06] MEDS ORDERED: SODIUM CHLORIDE 0.9% 500 ML IV STA (11:20)
[2017-06-06] MEDS ORDERED: INSULIN REGULAR 100 UNIT/ML ONE (11:28)
[2017-06-06] MEDS ORDERED: DOCUSATE SODIUM 100 MG CAPSULE PO PRN (13:09)
[2017-06-06] MEDS ORDERED: LACTULOSE 20 GM/30 ML UDCUP PO PRN (13:09)
[2017-06-06] MEDS ORDERED: ACETAMINOPHEN 325 MG TABLET PO PRN (13:09)
[2017-06-06] MEDS ORDERED: DEXTROSE 50% 25 GM/50 ML VIAL IV PRN (13:09)
[2017-06-06] MEDS ORDERED: GLUCAGON 1 MG VIAL IM PRN (13:09)
[2017-06-06] MEDS ORDERED: ONDANSETRON 4 MG/2 ML VIAL IV PRN (13:09)
[2017-06-06] MEDS ORDERED: SODIUM BICARB INJ 100 MEQ in STERILE WATER INJ 400 ML IV PRN (13:13)
[2017-06-06] MEDS ORDERED: POTASSIUM CHLORIDE RIDER 10 MEQ in PREMIX 1 EACH IV PRN (13:13)
[2017-06-06] MEDS ORDERED: SODIUM PHOSPHATE INJ 16.8 MMOL in SODIUM CHLORIDE 0.9% 250 ML IV PRN (13:13)
[2017-06-06] MEDS ORDERED: SODIUM CHLORIDE 0.9% 1,000 ML IV SCH ×2 (13:30→18:13)
[2017-06-06 13:43] LABS: Thyroid Stimulating Hormone 1.59 uIU/ml (0.358-3.74)
[2017-06-06 13:44] LABS: Apearance,Urine CLEAR (Clear); Bilirubin,Urine Negative (Negative); Blood, Urine Moderate mg/dL (Negative); Glucose,Urine (UA) >=500 mg/dL (Negative); Ketones,Urine 20 mg/dL (Negative); Nitrite,Urine Negative (Negative); Protein,Urine 100 MG/DL; RBC,Urine 9 /HPF (0-4); Urine Color Straw (Yellow); Urine Specific Gravity 1.026 (1.001-1.035); Urine Urobilinogen < 2.0 EU/DL (0.2-1.0); WBC,Urine 1 /HPF (0-6)
[2017-06-06 15:02] LABS: Calcium 8.1 MG/DL (8.5-10.1); Osmolality,Calculated 277.5 MOS/KG (273-304); Potassium 3.9 MMOL/L (3.5-5.1)
[2017-06-06] MEDS: SODIUM CHLORIDE 0.9% 1,000 ML IV SCH ×2 (15:54→21:36)
[2017-06-06] MEDS ORDERED: tiZANidine 4 MG TABLET PO PRN (17:52)
[2017-06-06 18:03] LABS: Calcium 7.9 MG/DL (8.5-10.1); Osmolality,Calculated 274.5 MOS/KG (273-304); Potassium 3.7 MMOL/L (3.5-5.1)
[2017-06-06] MEDS: INSULIN LISPRO 100 UNIT/ML SUBCUT SCH ×2 (19:29→21:34)
[2017-06-06] MEDS: INSULIN GLARGINE 100 UNIT/ML SUBCUT SCH (21:33)
[2017-06-06] MEDS: LACOSAMIDE 50 MG TABLET PO SCH (21:33)
[2017-06-06] MEDS: ROSUVASTATIN 10 MG TABLET PO SCH (21:33)
[2017-06-06 21:50] LABS: Calcium 7.7 MG/DL (8.5-10.1); Osmolality,Calculated 278.4 MOS/KG (273-304); Potassium 3.9 MMOL/L (3.5-5.1)
[2017-06-07] MEDS: CEFTAROLINE 600 MG in SODIUM CHLORIDE 0.9% 100 ML IV SCH ×3 (00:08→23:27)
[2017-06-07 01:35] LABS: Calcium 7.4 MG/DL (8.5-10.1); Osmolality,Calculated 274.1 MOS/KG (273-304); Potassium 3.7 MMOL/L (3.5-5.1)
[2017-06-07] MEDS: MORPHINE 4 MG/1 ML VIAL IV PRN (04:09)
[2017-06-07] MEDS: SODIUM CHLORIDE 0.9% 1,000 ML IV SCH (04:40)
[2017-06-07] MEDS: SODIUM CHLORIDE 0.45% 1,000 ML IV SCH ×2 (05:38→23:49)
[2017-06-07 05:42] LABS: INR 0.9; PT Patient Result 9.8 SECS; Partial Thromboplastin Time 29.9 SECS (0-40)
[2017-06-07 06:04] LABS: Alanine Aminotransferase 9 U/L (16-61); Alkaline Phosphatase 109 U/L (45-117); Aspartate Amino Transferase 11 U/L (0-37); Bilirubin,Total < 0.39 MG/DL (0.2-1.0); Blood Urea Nitrogen 16 MG/DL (7-18); Calcium 7.9 MG/DL (8.5-10.1); Glucose 173 MG/DL (74-106); Osmolality,Calculated 272.2 MOS/KG (273-304); Potassium 3.8 MMOL/L (3.5-5.1); Sodium 134 MMOL/L (136-145); Total Protein 5.8 G/DL (6.4-8.3)
[2017-06-07 06:10] LABS: Calcium 7.9 MG/DL (8.5-10.1); Potassium 3.8 MMOL/L (3.5-5.1); Risk Ratio 2.73; VLDL CHOLESTEROL 18.4 MG/DL
[2017-06-07 06:18] LABS: Apearance,Urine CLEAR (Clear); Bilirubin,Urine Negative (Negative); Blood, Urine Small mg/dL (Negative); Glucose,Urine (UA) >=500 mg/dL (Negative); Ketones,Urine 5 mg/dL (Negative); Mucus,Urine Occasional /LPF (Occasional); Nitrite,Urine Negative (Negative); Protein,Urine 100 MG/DL; RBC,Urine 6 /HPF (0-4); Urine Color Straw (Yellow); Urine Specific Gravity 1.032 (1.001-1.035); Urine Urobilinogen < 2.0 EU/DL (0.2-1.0); WBC,Urine 1 /HPF (0-6)
[2017-06-07 06:41] LABS: Basophils # 0.1 10*3/uL (0.0-0.2); Basophils % 0.7 % (0.0-0.8); Eosinophils # 0.3 10*3/uL (0.0-0.87); Eosinophils % 4.6 % (0.00-10.9); Hematocrit 28.7 VOL% (42.0-52.0); Hemoglobin 9.9 GM/DL (14.0-18.0); Immature Granulocytes % 0.4 %; Immature Granulocytes Absolute 0.03 #; Lymphocytes # 1.3 10*3/uL (1.4-4.0); Lymphocytes % 18.4 % (21.2-54.2); Mean Corpuscular HGB Conc 34.5 GM/DL (32-36); Mean Corpuscular Hemoglobin 28 PG (27-34); Mean Corpuscular Volume 80.4 FL (87-102); Mean Platelet Volume 9.4 FL (9.6-12.0); Monocytes # 0.6 10*3/uL (0.11-0.8); Monocytes % 7.8 % (1.7-12.7); Neutrophils # 4.9 10*3/uL (1.4-7.4); Neutrophils % 68.1 % (38.7-73.9); Platelet Count 255 T/CUMM (130-400); Red Blood Count 3.57 MC/CUMM (3.8-5.5); Red Cell Distribution Width 11.6 % (9.3-17.3); White Blood Count 7.2 T/CUMM (4-12)
[2017-06-07] MEDS: INSULIN LISPRO 100 UNIT/ML SUBCUT SCH ×7 (07:40→21:19)
[2017-06-07] MEDS: LOSARTAN 25 MG TABLET PO SCH (08:11)
[2017-06-07] MEDS: LACOSAMIDE 50 MG TABLET PO SCH ×2 (08:12→21:19)
[2017-06-07] MEDS: INSULIN GLARGINE 100 UNIT/ML SUBCUT SCH ×2 (08:32→21:20)
[2017-06-07] MEDS ORDERED: MIDAZOLAM 2 MG/2 ML VIAL ONE (09:17)
[2017-06-07] MEDS ORDERED: LACTATED RINGERS 1,000 ML IV ONE (09:17)
[2017-06-07] MEDS ORDERED: fentaNYL 100 MCG/2 ML VIAL ONE (09:17)
[2017-06-07] MEDS ORDERED: ONDANSETRON 4 MG/2 ML VIAL ONE (09:17)
[2017-06-07] MEDS ORDERED: PROPOFOL 200 MG/20 ML VIAL IV ONE (09:17)
[2017-06-07] MEDS ORDERED: DEXTROSE 50% 25 GM/50 ML VIAL IV PRN (11:35)
[2017-06-07] MEDS ORDERED: GLUCAGON 1 MG VIAL IM PRN (11:35)
[2017-06-07] MEDS: SERTRALINE 50 MG TABLET PO SCH (14:14)
[2017-06-07] MEDS: PANTOPRAZOLE 40 MG TABLET PO SCH (14:14)
[2017-06-07] MEDS: ROSUVASTATIN 10 MG TABLET PO SCH (21:19)
[2017-06-07] MEDS: CALCIUM CARBONATE CHEW 500 MG TABLET PO SCH (21:19)
[2017-06-08] MEDS: SODIUM CHLORIDE 0.9% 1,000 ML IV SCH (03:32)
[2017-06-08 03:46] LABS: Basophils # 0.1 10*3/uL (0.0-0.2); Basophils % 0.8 % (0.0-0.8); Eosinophils # 0.3 10*3/uL (0.0-0.87); Hematocrit 29.8 VOL% (42.0-52.0); Hemoglobin 10.5 GM/DL (14.0-18.0); Immature Granulocytes % 0.9 %; Immature Granulocytes Absolute 0.06 #; Lymphocytes # 1.6 10*3/uL (1.4-4.0); Lymphocytes % 25.3 % (21.2-54.2); Mean Corpuscular HGB Conc 35.2 GM/DL (32-36); Mean Corpuscular Hemoglobin 29 PG (27-34); Mean Corpuscular Volume 81.4 FL (87-102); Mean Platelet Volume 8.9 FL (9.6-12.0); Monocytes # 0.5 10*3/uL (0.11-0.8); Neutrophils # 3.9 10*3/uL (1.4-7.4); Platelet Count 258 T/CUMM (130-400); Red Blood Count 3.66 MC/CUMM (3.8-5.5); Red Cell Distribution Width 11.7 % (9.3-17.3); White Blood Count 6.4 T/CUMM (4-12)
[2017-06-08 04:13] LABS: Calcium 8.1 MG/DL (8.5-10.1); Osmolality,Calculated 282.8 MOS/KG (273-304); Potassium 4.2 MMOL/L (3.5-5.1)
[2017-06-08] MEDS: INSULIN GLARGINE 100 UNIT/ML SUBCUT SCH ×2 (08:15→21:13)
[2017-06-08] MEDS: LOSARTAN 25 MG TABLET PO SCH (08:15)
[2017-06-08] MEDS: CALCIUM CARBONATE CHEW 500 MG TABLET PO SCH ×2 (08:15→21:13)
[2017-06-08] MEDS: PANTOPRAZOLE 40 MG TABLET PO SCH (08:15)
[2017-06-08] MEDS: INSULIN LISPRO 100 UNIT/ML SUBCUT SCH ×7 (08:15→21:53)
[2017-06-08] MEDS: LACOSAMIDE 50 MG TABLET PO SCH ×2 (08:16→21:12)
[2017-06-08] MEDS: SERTRALINE 50 MG TABLET PO SCH (08:16)
[2017-06-08] MEDS ORDERED: SILVER NITRATE STICK 1 EACH TOP ONE ×2 (10:10→10:14)
[2017-06-08] MEDS: CEFTAROLINE 600 MG in SODIUM CHLORIDE 0.9% 100 ML IV SCH ×2 (14:40→23:19)
[2017-06-08] MEDS: ROSUVASTATIN 10 MG TABLET PO SCH (21:13)
[2017-06-09 04:09] LABS: Basophils % 0.5 % (0.0-0.8); Eosinophils # 0.2 10*3/uL (0.0-0.87); Eosinophils % 3.5 % (0.00-10.9); Hemoglobin 10.5 GM/DL (14.0-18.0); Immature Granulocytes % 0.2 %; Immature Granulocytes Absolute 0.01 #; Lymphocytes # 1.3 10*3/uL (1.4-4.0); Lymphocytes % 21.4 % (21.2-54.2); Mean Corpuscular HGB Conc 33.9 GM/DL (32-36); Mean Corpuscular Hemoglobin 28 PG (27-34); Mean Corpuscular Volume 82.4 FL (87-102); Mean Platelet Volume 9.1 FL (9.6-12.0); Monocytes # 0.5 10*3/uL (0.11-0.8); Monocytes % 8.4 % (1.7-12.7); Platelet Count 279 T/CUMM (130-400); Red Blood Count 3.76 MC/CUMM (3.8-5.5); Red Cell Distribution Width 11.8 % (9.3-17.3); White Blood Count 6.1 T/CUMM (4-12)
[2017-06-09 04:28] LABS: Calcium 8.1 MG/DL (8.5-10.1); Osmolality,Calculated 290.1 MOS/KG (273-304); Potassium 4.5 MMOL/L (3.5-5.1)
[2017-06-09] MEDS: SODIUM CHLORIDE 0.9% 1,000 ML IV SCH (05:52)
[2017-06-09] MEDS: INSULIN LISPRO 100 UNIT/ML SUBCUT SCH ×4 (08:01→13:15)
[2017-06-09] MEDS: LACOSAMIDE 50 MG TABLET PO SCH (09:02)
[2017-06-09] MEDS: INSULIN GLARGINE 100 UNIT/ML SUBCUT SCH (09:02)
[2017-06-09] MEDS: LOSARTAN 25 MG TABLET PO SCH (09:03)
[2017-06-09] MEDS: SERTRALINE 50 MG TABLET PO SCH (09:03)
[2017-06-09] MEDS: CALCIUM CARBONATE CHEW 500 MG TABLET PO SCH (09:03)
[2017-06-09] MEDS: PANTOPRAZOLE 40 MG TABLET PO SCH (09:03)
[2017-06-09] MEDS: CEFTAROLINE 600 MG in SODIUM CHLORIDE 0.9% 100 ML IV SCH (14:13)
[2017-06-09] MEDS: MORPHINE 4 MG/1 ML VIAL IV PRN (14:13)
[2017-06-09 15:07] VITALS: BP 145/85
== END 2017-06-09 16:10 | disposition home or self-care (01) | DRG 305 ==
LOC: N.ED 09:46 → N.EDINP 12:05 → SUATTDRO 12:05 → N.EDINP 13:48 → N.3E 14:00
PROVIDERS: ADMIT Internal Medicine; ATTEND Internal Medicine

== ENCOUNTER 2017-07-28 16:00 | Inpatient (IN) ==
[2017-07-28] MEDS ORDERED: DEXTROSE 50% 25 GM/50 ML SYRINGE IV ONE (17:08)
[2017-07-28] MEDS ORDERED: DEXTROSE 50% 25 GM/50 ML VIAL IV STA ×2 (17:09)
[2017-07-28] MEDS ORDERED: DEXTROSE 50% 25 GM/50 ML VIAL IV ONE (17:16)
[2017-07-28] MEDS ORDERED: LEVOFLOXACIN INJ 750 MG in PREMIX 1 EACH IV STA (17:17)
[2017-07-28 17:52] LABS: Basophils # 0.1 10*3/uL (0.0-0.2); Basophils % 1.1 % (0.0-0.8); Eosinophils # 0.4 10*3/uL (0.0-0.87); Eosinophils % 5.4 % (0.00-10.9); Hematocrit 37.3 VOL% (42.0-52.0); Hemoglobin 12.6 GM/DL (14.0-18.0); Immature Granulocytes % 0.3 %; Immature Granulocytes Absolute 0.02 #; Lymphocytes # 2.6 10*3/uL (1.4-4.0); Lymphocytes % 37.2 % (21.2-54.2); Mean Corpuscular HGB Conc 33.8 GM/DL (32-36); Mean Corpuscular Hemoglobin 28 PG (27-34); Mean Corpuscular Volume 83.1 FL (87-102); Mean Platelet Volume 9.9 FL (9.6-12.0); Monocytes # 0.6 10*3/uL (0.11-0.8); Neutrophils # 3.3 10*3/uL (1.4-7.4); Platelet Count 221 T/CUMM (130-400); Red Blood Count 4.49 MC/CUMM (3.8-5.5); Red Cell Distribution Width 12.5 % (9.3-17.3)
[2017-07-28 18:02] LABS: INR 0.9; PT Patient Result 9.5 SECS; Partial Thromboplastin Time 25.9 SECS (0-40)
[2017-07-28] MEDS: DEXTROSE 5% 1,000 ML IV SCH (18:11)
[2017-07-28 18:14] LABS: Alanine Aminotransferase 18 U/L (16-61); Albumin 2.9 G/DL (3.4-5.0); Alkaline Phosphatase 119 U/L (45-117); Aspartate Amino Transferase 15 U/L (0-37); Bilirubin,Total < 0.39 MG/DL (0.2-1.0); Blood Urea Nitrogen 17 MG/DL (7-18); Calcium 8.5 MG/DL (8.5-10.1); Osmolality,Calculated 275.5 MOS/KG (273-304); Potassium 2.9 MMOL/L (3.5-5.1); Sodium 139 MMOL/L (136-145); Total Protein 7.5 G/DL (6.4-8.3); Troponin I Only < 0.015 NG/ML (0.00-0.045)
[2017-07-28 18:17] LABS: Glucose 39 MG/DL (74-106)
[2017-07-28 18:24] LABS: Lactic Acid 2.1 MMOL/L (0.4-2.0)
[2017-07-28] MEDS ORDERED: LORazepam 2 MG/1 ML VIAL ONE (18:26)
[2017-07-28] MEDS ORDERED: LORazepam 2 MG/1 ML VIAL IV STA ×2 (18:27→23:29)
[2017-07-28 18:52] LABS: Apearance,Urine CLEAR (Clear); Bacteria,Urine Occasional /HPF (Few); Bilirubin,Urine Negative (Negative); Blood, Urine Small mg/dL (Negative); Glucose,Urine (UA) >=500 mg/dL (Negative); Hyaline Casts,Urine 29 /LPF (0-3); Ketones,Urine Negative (Negative); Mucus,Urine Occasional /LPF (Occasional); Nitrite,Urine Negative (Negative); Protein,Urine >=500 MG/DL; RBC,Urine 3 /HPF (0-4); Sperm,Urine Occasional /HPF (Negative); Squamous Epithelial Cell,Urine Occasional /HPF (0-10); Urine Color Yellow (Yellow); Urine Specific Gravity 1.013 (1.001-1.035); Urine Urobilinogen < 2.0 EU/DL (0.2-1.0); WBC,Urine 3 /HPF (0-6)
[2017-07-28 18:58] LABS: Sedimentation Rate-Westergren 73 MM/HR (0-15)
[2017-07-28] MEDS ORDERED: POTASSIUM BICARB EFFERVESCENT 25 MEQ TABLET PO ONE (19:33)
[2017-07-28 19:46] LABS: Barbiturates Screen,Urine Negative (Negative); Benzodiazepines Screen,Urine Negative (Negative); Cannabinoid Screen,Urine Negative (Negative); Opiate Screen,Urine Negative (Negative); Phencyclidine Screen,Urine Negative (Negative)
[2017-07-28] MEDS ORDERED: SODIUM CHLORIDE 0.9% 1,000 ML IV SCH (23:29)
[2017-07-28] MEDS ORDERED: LORazepam 2 MG/1 ML VIAL IV ONE (23:29)
[2017-07-28] MEDS ORDERED: levETIRAcetam 500 MG TABLET PO SCH (23:29)
[2017-07-28] MEDS ORDERED: ONDANSETRON 4 MG/2 ML VIAL IV PRN (23:29)
[2017-07-29] MEDS: DEXTROSE 5% 1,000 ML IV SCH ×2 (00:26→07:01)
[2017-07-29] MEDS: LACOSAMIDE 50 MG TABLET PO SCH ×3 (02:07→20:39)
[2017-07-29] MEDS: SULFAMETHOX/TRIMETHOPRIM 800-160 MG TABLET PO SCH ×3 (02:08→20:40)
[2017-07-29] MEDS: ROSUVASTATIN 10 MG TABLET PO SCH ×2 (02:10→20:40)
[2017-07-29 05:12] LABS: Basophils % 0.8 % (0.0-0.8); Eosinophils # 0.3 10*3/uL (0.0-0.87); Eosinophils % 6.3 % (0.00-10.9); Hematocrit 31.2 VOL% (42.0-52.0); Hemoglobin 10.6 GM/DL (14.0-18.0); Lymphocytes # 1.3 10*3/uL (1.4-4.0); Mean Corpuscular Hemoglobin 28 PG (27-34); Mean Corpuscular Volume 83.2 FL (87-102); Mean Platelet Volume 9.8 FL (9.6-12.0); Monocytes # 0.4 10*3/uL (0.11-0.8); Neutrophils # 2.7 10*3/uL (1.4-7.4); Neutrophils % 55.9 % (38.7-73.9); Platelet Count 178 T/CUMM (130-400); Red Blood Count 3.75 MC/CUMM (3.8-5.5); Red Cell Distribution Width 12.4 % (9.3-17.3); White Blood Count 4.8 T/CUMM (4-12)
[2017-07-29 05:52] LABS: Calcium 7.7 MG/DL (8.5-10.1); Osmolality,Calculated 286.5 MOS/KG (273-304); Potassium 3.9 MMOL/L (3.5-5.1)
[2017-07-29] MEDS: SERTRALINE 50 MG TABLET PO SCH (09:31)
[2017-07-29] MEDS: levETIRAcetam 500 MG TABLET PO SCH ×2 (09:31→20:40)
[2017-07-29] MEDS: PANTOPRAZOLE 40 MG TABLET PO SCH (09:31)
[2017-07-29] MEDS: ASPIRIN EC 81 MG TABLET PO SCH (09:31)
[2017-07-29] MEDS: INSULIN REGULAR 100 UNIT/ML SUBCUT SCH ×3 (12:40→20:38)
[2017-07-29] MEDS: INSULIN GLARGINE 100 UNIT/ML SUBCUT SCH (12:41)
[2017-07-29] MEDS: LORazepam 2 MG/1 ML VIAL IV PRN (16:42)
[2017-07-29] MEDS ORDERED: LORazepam 2 MG/1 ML VIAL IV PRN (16:52)
[2017-07-29] MEDS ORDERED: LORazepam 2 MG/1 ML VIAL IV ONE (20:00)
[2017-07-30] MEDS: INSULIN REGULAR 100 UNIT/ML SUBCUT SCH ×6 (00:04→20:51)
[2017-07-30] MEDS: SERTRALINE 50 MG TABLET PO SCH (08:49)
[2017-07-30] MEDS: levETIRAcetam 500 MG TABLET PO SCH ×2 (08:49→21:12)
[2017-07-30] MEDS: INSULIN GLARGINE 100 UNIT/ML SUBCUT SCH (08:50)
[2017-07-30] MEDS: SULFAMETHOX/TRIMETHOPRIM 800-160 MG TABLET PO SCH ×2 (08:50→21:12)
[2017-07-30] MEDS: ASPIRIN EC 81 MG TABLET PO SCH (08:50)
[2017-07-30] MEDS: PANTOPRAZOLE 40 MG TABLET PO SCH (08:51)
[2017-07-30] MEDS: LACOSAMIDE 50 MG TABLET PO SCH ×3 (10:03→21:12)
[2017-07-30] MEDS: LORazepam 2 MG/1 ML VIAL IV PRN (16:40)
[2017-07-30] MEDS ORDERED: DEXTROSE 50% 25 GM/50 ML VIAL IV ONE (17:54)
[2017-07-30] MEDS ORDERED: DEXTROSE 50% 25 GM/50 ML VIAL IV PRN (18:09)
[2017-07-30] MEDS: ROSUVASTATIN 10 MG TABLET PO SCH (21:12)
[2017-07-31] MEDS: INSULIN REGULAR 100 UNIT/ML SUBCUT SCH ×5 (00:32→18:16)
[2017-07-31 05:18] LABS: Basophils # 0.1 10*3/uL (0.0-0.2); Eosinophils # 0.3 10*3/uL (0.0-0.87); Hematocrit 32.1 VOL% (42.0-52.0); Hemoglobin 10.5 GM/DL (14.0-18.0); Immature Granulocytes % 0.2 %; Immature Granulocytes Absolute 0.01 #; Lymphocytes # 1.7 10*3/uL (1.4-4.0); Mean Corpuscular HGB Conc 32.7 GM/DL (32-36); Mean Corpuscular Hemoglobin 28 PG (27-34); Mean Corpuscular Volume 85.6 FL (87-102); Mean Platelet Volume 9.5 FL (9.6-12.0); Monocytes # 0.4 10*3/uL (0.11-0.8); Monocytes % 8.5 % (1.7-12.7); Neutrophils # 2.7 10*3/uL (1.4-7.4); Neutrophils % 52.3 % (38.7-73.9); Platelet Count 171 T/CUMM (130-400); Red Blood Count 3.75 MC/CUMM (3.8-5.5); Red Cell Distribution Width 12.5 % (9.3-17.3); White Blood Count 5.2 T/CUMM (4-12)
[2017-07-31 05:33] LABS: Calcium 7.6 MG/DL (8.5-10.1); Osmolality,Calculated 285.3 MOS/KG (273-304); Potassium 4.1 MMOL/L (3.5-5.1)
[2017-07-31] MEDS: ASPIRIN EC 81 MG TABLET PO SCH (09:53)
[2017-07-31] MEDS: SULFAMETHOX/TRIMETHOPRIM 800-160 MG TABLET PO SCH ×2 (09:53→20:44)
[2017-07-31] MEDS: SERTRALINE 50 MG TABLET PO SCH (09:54)
[2017-07-31] MEDS: PANTOPRAZOLE 40 MG TABLET PO SCH (09:54)
[2017-07-31] MEDS: levETIRAcetam 500 MG TABLET PO SCH ×2 (09:54→20:45)
[2017-07-31] MEDS: LACOSAMIDE 50 MG TABLET PO SCH ×2 (09:55→20:46)
[2017-07-31] MEDS: INSULIN GLARGINE 100 UNIT/ML SUBCUT SCH (10:02)
[2017-07-31] MEDS: ROSUVASTATIN 10 MG TABLET PO SCH (20:44)
[2017-07-31] MEDS: LOSARTAN 25 MG TABLET PO SCH (20:46)
[2017-07-31] MEDS: SILVER SULFADIAZINE 1% CREAM 25 GM TUBE TOP SCH (22:03)
[2017-07-31] MEDS ORDERED: CYCLOBENZAPRINE 10 MG TABLET PO PRN (23:29)
[2017-08-01] MEDS: INSULIN REGULAR 100 UNIT/ML SUBCUT SCH ×3 (01:31→11:53)
[2017-08-01 06:09] LABS: Calcium 8.4 MG/DL (8.5-10.1); Osmolality,Calculated 281.1 MOS/KG (273-304); Potassium 3.6 MMOL/L (3.5-5.1)
[2017-08-01] MEDS: PANTOPRAZOLE 40 MG TABLET PO SCH (08:49)
[2017-08-01] MEDS: SERTRALINE 50 MG TABLET PO SCH (08:49)
[2017-08-01] MEDS: levETIRAcetam 500 MG TABLET PO SCH (08:49)
[2017-08-01] MEDS: LOSARTAN 25 MG TABLET PO SCH (08:49)
[2017-08-01] MEDS: ASPIRIN EC 81 MG TABLET PO SCH (08:49)
[2017-08-01] MEDS: SULFAMETHOX/TRIMETHOPRIM 800-160 MG TABLET PO SCH (08:49)
[2017-08-01] MEDS: SILVER SULFADIAZINE 1% CREAM 25 GM TUBE TOP SCH (08:50)
[2017-08-01] MEDS: LACOSAMIDE 50 MG TABLET PO SCH (08:59)
[2017-08-01] MEDS: INSULIN GLARGINE 100 UNIT/ML SUBCUT SCH (09:06)
[2017-08-01 12:10] VITALS: BP 131/91
== END 2017-08-01 14:30 | disposition home or self-care (01) | DRG 53 ==
LOC: N.EDINP 16:00 → N.ED 16:00 → SUATTDRO 21:08 → N.2E 21:11 → N.CC 07-29 19:57 → SUATTDRO 07-30 09:32
PROVIDERS: ADMIT Internal Medicine Infectious Disease; ATTEND Internal Medicine

== ENCOUNTER 2017-11-10 13:00 | Inpatient (IN) ==
[2017-11-10] MEDS ORDERED: ASPIRIN 325 MG TABLET PO STA (13:25)
[2017-11-10 14:19] LABS: Basophils # 0.1 10*3/uL (0.0-0.2); Eosinophils # 0.3 10*3/uL (0.0-0.87); Eosinophils % 4.8 % (0.00-10.9); Hematocrit 35.5 VOL% (42.0-52.0); Hemoglobin 12.2 GM/DL (14.0-18.0); Immature Granulocytes % 0.3 %; Immature Granulocytes Absolute 0.02 #; Lymphocytes # 1.4 10*3/uL (1.4-4.0); Lymphocytes % 21.5 % (21.2-54.2); Mean Corpuscular HGB Conc 34.4 GM/DL (32-36); Mean Corpuscular Hemoglobin 28 PG (27-34); Mean Corpuscular Volume 82.4 FL (87-102); Mean Platelet Volume 9.2 FL (9.6-12.0); Monocytes # 0.3 10*3/uL (0.11-0.8); Monocytes % 5.4 % (1.7-12.7); Neutrophils # 4.2 10*3/uL (1.4-7.4); Platelet Count 216 T/CUMM (130-400); Red Blood Count 4.31 MC/CUMM (3.8-5.5); Red Cell Distribution Width 12.6 % (9.3-17.3); White Blood Count 6.3 T/CUMM (4-12)
[2017-11-10] MEDS ORDERED: SODIUM CHLORIDE 0.9% 1,000 ML IV STA ×2 (14:25→15:28)
[2017-11-10] MEDS ORDERED: INSULIN REGULAR 100 UNIT/ML IV STA (14:25)
[2017-11-10 14:38] LABS: Apearance,Urine CLEAR (Clear); Bilirubin,Urine Negative (Negative); Blood, Urine Small mg/dL (Negative); Glucose,Urine (UA) >=500 mg/dL (Negative); Ketones,Urine 80 mg/dL (Negative); Nitrite,Urine Negative (Negative); Protein,Urine >=500 MG/DL; RBC,Urine 1 /HPF (0-4); Squamous Epithelial Cell,Urine Occasional /HPF (0-10); Urine Color Yellow (Yellow); Urine Specific Gravity 1.025 (1.001-1.035); Urine Urobilinogen < 2.0 EU/DL (0.2-1.0); WBC,Urine <1 /HPF (0-6)
[2017-11-10 14:39] LABS: Calcium 8.7 MG/DL (8.5-10.1); Osmolality,Calculated 288.7 MOS/KG (273-304); Potassium 4.3 MMOL/L (3.5-5.1)
[2017-11-10 14:48] LABS: Barbiturates Screen,Urine Negative (Negative); Benzodiazepines Screen,Urine Negative (Negative); Cannabinoid Screen,Urine Negative (Negative); Opiate Screen,Urine Negative (Negative); Phencyclidine Screen,Urine Negative (Negative)
[2017-11-10 15:31] LABS: ABG Base Excess -5.5 MMOL/L (-2.5-2.5); ABG HCO3 19.8 MMOL/L (20-26); ABG Oxygen Saturation 94.6 % (95-100); ABG PCO2 37.8 MM HG (35-48); ABG PH 7.329 (7.35-7.45); Allen Test Positive
[2017-11-10] MEDS ORDERED: LEVOFLOXACIN INJ 500 MG in PREMIX 1 EACH IV STA (15:36)
[2017-11-10] MEDS ORDERED: hydrALAZINE 20 MG/1 ML VIAL IV STA (16:04)
[2017-11-10] MEDS ORDERED: hydrALAZINE 20 MG/1 ML VIAL ONE (16:04)
[2017-11-10] MEDS ORDERED: SODIUM PHOSPHATE INJ 16.4 MMOL in SODIUM CHLORIDE 0.9% 250 ML IV PRN (16:12)
[2017-11-10] MEDS ORDERED: MAGNESIUM SULF RIDER 4 GM in PREMIX 1 EACH IV PRN (16:12)
[2017-11-10] MEDS ORDERED: INSULIN REGULAR 100 UNIT/ML IV ONE (16:12)
[2017-11-10] MEDS ORDERED: DEXTROSE 50% 25 GM/50 ML VIAL IV PRN ×3 (16:12→16:17)
[2017-11-10] MEDS ORDERED: SODIUM CHLORIDE 0.9% 1,000 ML IV ONE (16:12)
[2017-11-10] MEDS ORDERED: SODIUM BICARB INJ 100 MEQ in STERILE WATER INJ 400 ML IV PRN (16:12)
[2017-11-10] MEDS ORDERED: MAGNESIUM SULF RIDER 2 GM in PREMIX 1 EACH IV PRN (16:12)
[2017-11-10] MEDS ORDERED: GLUCAGON 1 MG VIAL IM PRN (16:17)
[2017-11-10] MEDS ORDERED: INSULIN REGULAR DRIP 100 ML IV SCH (16:30)
[2017-11-10] MEDS ORDERED: INSULIN LISPRO 100 UNIT/ML SUBCUT SCH (16:30)
[2017-11-10 17:09] LABS: ABG Base Excess -4.2 MMOL/L (-2.5-2.5); ABG HCO3 20.9 MMOL/L (20-26); ABG Oxygen Saturation 95.9 % (95-100); ABG PCO2 37.8 MM HG (35-48); ABG PH 7.351 (7.35-7.45); ABG PO2 83.8 MM HG (80-95); ABG TCO2 18.8 MMOL/L (23-27)
[2017-11-10 17:29] LABS: Calcium 8.2 MG/DL (8.5-10.1); Osmolality,Calculated 288.4 MOS/KG (273-304); Potassium 4.6 MMOL/L (3.5-5.1)
[2017-11-10] MEDS ORDERED: SODIUM CHLOR 0.45% KCL 20 MEQ 20 MEQ/1,000 ML BAG IV SCH (17:30)
[2017-11-10] MEDS: PANTOPRAZOLE 40 MG VIAL IV SCH (17:32)
[2017-11-10] MEDS ORDERED: ONDANSETRON 4 MG/2 ML VIAL ONE (17:32)
[2017-11-10] MEDS ORDERED: ONDANSETRON 4 MG/2 ML VIAL IV PRN (17:34)
[2017-11-10] MEDS ORDERED: hydrALAZINE 20 MG/1 ML VIAL IV PRN (18:17)
[2017-11-10] MEDS: DEXT 5% NACL 0.45% KCL 20 MEQ 20 MEQ/1,000 ML BAG IV SCH ×2 (18:25→23:45)
[2017-11-10] MEDS: levETIRAcetam 500 MG TABLET PO SCH (21:28)
[2017-11-10] MEDS: ROSUVASTATIN 10 MG TABLET PO SCH (21:28)
[2017-11-10] MEDS: LACOSAMIDE 50 MG TABLET PO SCH (21:29)
[2017-11-10] MEDS: ENOXAPARIN 40 MG/0.4 ML SYRINGE SUBCUT SCH (21:29)
[2017-11-11 00:49] LABS: Calcium 7.8 MG/DL (8.5-10.1); Osmolality,Calculated 274.7 MOS/KG (273-304); Potassium 3.8 MMOL/L (3.5-5.1)
[2017-11-11] MEDS: CYCLOBENZAPRINE 10 MG TABLET PO PRN ×2 (01:20→15:34)
[2017-11-11] MEDS ORDERED: SODIUM CHLORIDE 0.45% 1,000 ML IV SCH (05:30)
[2017-11-11] MEDS ORDERED: INSULIN NPH 100 UNIT/ML SUBCUT SCH ×2 (06:00→07:30)
[2017-11-11 06:02] LABS: Basophils % 0.6 % (0.0-0.8); Eosinophils # 0.5 10*3/uL (0.0-0.87); Eosinophils % 7.2 % (0.00-10.9); Hematocrit 32.8 VOL% (42.0-52.0); Hemoglobin 11.3 GM/DL (14.0-18.0); Immature Granulocytes % 0.6 %; Immature Granulocytes Absolute 0.04 #; Lymphocytes # 1.6 10*3/uL (1.4-4.0); Lymphocytes % 23.2 % (21.2-54.2); Mean Corpuscular HGB Conc 34.5 GM/DL (32-36); Mean Corpuscular Hemoglobin 28 PG (27-34); Mean Corpuscular Volume 81.6 FL (87-102); Mean Platelet Volume 9.4 FL (9.6-12.0); Monocytes # 0.4 10*3/uL (0.11-0.8); Monocytes % 6.3 % (1.7-12.7); Neutrophils # 4.3 10*3/uL (1.4-7.4); Neutrophils % 62.1 % (38.7-73.9); Platelet Count 211 T/CUMM (130-400); Red Blood Count 4.02 MC/CUMM (3.8-5.5); Red Cell Distribution Width 12.5 % (9.3-17.3)
[2017-11-11 06:29] LABS: Calcium 7.8 MG/DL (8.5-10.1)
[2017-11-11 06:30] LABS: Osmolality,Calculated 275.5 MOS/KG (273-304)
[2017-11-11] MEDS: PANTOPRAZOLE 40 MG VIAL IV SCH (08:16)
[2017-11-11] MEDS: levETIRAcetam 500 MG TABLET PO SCH ×2 (08:16→21:34)
[2017-11-11] MEDS: SERTRALINE 50 MG TABLET PO SCH (08:16)
[2017-11-11] MEDS: LACOSAMIDE 50 MG TABLET PO SCH ×2 (08:16→21:36)
[2017-11-11] MEDS: ASPIRIN EC 81 MG TABLET PO SCH (08:16)
[2017-11-11 08:26] LABS: Calcium 7.9 MG/DL (8.5-10.1); Osmolality,Calculated 277.7 MOS/KG (273-304)
[2017-11-11] MEDS ORDERED: LOSARTAN 25 MG TABLET PO SCH (09:00)
[2017-11-11] MEDS: INSULIN GLARGINE 100 UNIT/ML SUBCUT SCH (11:10)
[2017-11-11] MEDS ORDERED: GLUCAGON 1 MG VIAL IM PRN (11:39)
[2017-11-11] MEDS ORDERED: DEXTROSE 50% 25 GM/50 ML VIAL IV PRN (11:39)
[2017-11-11] MEDS: INSULIN LISPRO 100 UNIT/ML SUBCUT SCH ×2 (12:23→18:03)
[2017-11-11 12:56] LABS: Calcium 7.9 MG/DL (8.5-10.1); Osmolality,Calculated 280.7 MOS/KG (273-304); Potassium 4.1 MMOL/L (3.5-5.1)
[2017-11-11] MEDS ORDERED: MORPHINE 4 MG/1 ML VIAL IV ONE (21:16)
[2017-11-11] MEDS ORDERED: LORazepam 2 MG/1 ML VIAL IV PRN (21:26)
[2017-11-11] MEDS ORDERED: ASPIRIN CHEW 81 MG TABLET PO ONE (21:30)
[2017-11-11] MEDS: ROSUVASTATIN 10 MG TABLET PO SCH (21:34)
[2017-11-11] MEDS: ENOXAPARIN 40 MG/0.4 ML SYRINGE SUBCUT SCH (21:34)
[2017-11-11 21:48] LABS: Basophils # 0.1 10*3/uL (0.0-0.2); Basophils % 0.8 % (0.0-0.8); Eosinophils # 0.4 10*3/uL (0.0-0.87); Eosinophils % 6.5 % (0.00-10.9); Hematocrit 33.4 VOL% (42.0-52.0); Hemoglobin 11.4 GM/DL (14.0-18.0); Immature Granulocytes % 0.3 %; Immature Granulocytes Absolute 0.02 #; Lymphocytes # 1.6 10*3/uL (1.4-4.0); Lymphocytes % 26.7 % (21.2-54.2); Mean Corpuscular HGB Conc 34.1 GM/DL (32-36); Mean Corpuscular Hemoglobin 28 PG (27-34); Mean Corpuscular Volume 81.7 FL (87-102); Mean Platelet Volume 9.5 FL (9.6-12.0); Monocytes # 0.5 10*3/uL (0.11-0.8); Monocytes % 8.1 % (1.7-12.7); Neutrophils # 3.5 10*3/uL (1.4-7.4); Neutrophils % 57.6 % (38.7-73.9); Platelet Count 233 T/CUMM (130-400); Red Blood Count 4.09 MC/CUMM (3.8-5.5); Red Cell Distribution Width 12.4 % (9.3-17.3); White Blood Count 6.2 T/CUMM (4-12)
[2017-11-11 22:03] LABS: Alanine Aminotransferase 11 U/L (16-61); Alkaline Phosphatase 96 U/L (45-117); Aspartate Amino Transferase 12 U/L (0-37); Bilirubin,Total < 0.39 MG/DL (0.2-1.0); Blood Urea Nitrogen 10 MG/DL (7-18); Calcium 8.3 MG/DL (8.5-10.1); Glucose 80 MG/DL (74-106); Osmolality,Calculated 278.3 MOS/KG (273-304); Potassium 3.3 MMOL/L (3.5-5.1); Sodium 141 MMOL/L (136-145); Total Protein 5.9 G/DL (6.4-8.3)
[2017-11-12] MEDS: POTASSIUM CHLORIDE RIDER 10 MEQ in PREMIX 1 EACH IV PRN ×4 (01:27→06:49)
[2017-11-12 06:56] LABS: Calcium 8.2 MG/DL (8.5-10.1)
[2017-11-12 06:57] LABS: Osmolality,Calculated 280.8 MOS/KG (273-304); Potassium 4.5 MMOL/L (3.5-5.1)
[2017-11-12] MEDS: SERTRALINE 50 MG TABLET PO SCH (09:43)
[2017-11-12] MEDS: ASPIRIN EC 81 MG TABLET PO SCH (09:43)
[2017-11-12] MEDS: levETIRAcetam 500 MG TABLET PO SCH ×2 (09:44→21:09)
[2017-11-12] MEDS: INSULIN LISPRO 100 UNIT/ML SUBCUT SCH ×3 (09:44→17:14)
[2017-11-12] MEDS: LACOSAMIDE 50 MG TABLET PO SCH ×2 (09:44→21:09)
[2017-11-12] MEDS: INSULIN GLARGINE 100 UNIT/ML SUBCUT SCH (09:45)
[2017-11-12] MEDS ORDERED: DOCUSATE SODIUM 100 MG CAPSULE PO SCH (10:00)
[2017-11-12] MEDS: SODIUM CHLORIDE 0.9% 1,000 ML IV SCH ×2 (10:42→18:17)
[2017-11-12] MEDS: CYCLOBENZAPRINE 10 MG TABLET PO PRN (14:52)
[2017-11-12] MEDS: DOCUSATE SODIUM 100 MG CAPSULE PO SCH (21:08)
[2017-11-12] MEDS: ENOXAPARIN 40 MG/0.4 ML SYRINGE SUBCUT SCH (21:09)
[2017-11-12] MEDS: ROSUVASTATIN 10 MG TABLET PO SCH (21:12)
[2017-11-13] MEDS: ASPIRIN EC 81 MG TABLET PO SCH (08:54)
[2017-11-13] MEDS: INSULIN GLARGINE 100 UNIT/ML SUBCUT SCH (08:54)
[2017-11-13] MEDS: LACOSAMIDE 50 MG TABLET PO SCH (08:54)
[2017-11-13] MEDS: SERTRALINE 50 MG TABLET PO SCH (08:54)
[2017-11-13] MEDS: INSULIN LISPRO 100 UNIT/ML SUBCUT SCH ×2 (08:54→12:11)
[2017-11-13] MEDS: levETIRAcetam 500 MG TABLET PO SCH (08:54)
[2017-11-13] MEDS: DOCUSATE SODIUM 100 MG CAPSULE PO SCH (08:54)
[2017-11-13] MEDS ORDERED: INSULIN GLARGINE 100 UNIT/ML SUBCUT SCH (11:00)
[2017-11-13 11:50] VITALS: BP 133/92
== END 2017-11-13 15:13 | disposition home or self-care (01) | DRG 420 ==
LOC: EDBD → EDUNIT# → N.ED 13:00 → N.EDINP 16:18 → SUATTDRO 16:18 → N.ICU 16:58 → N.5E 11-11 17:05
PROVIDERS: ADMIT Internal Medicine; ATTEND Internal Medicine

== ENCOUNTER 2018-01-22 10:24 | Inpatient (IN) ==
[2018-01-22] MEDS ORDERED: DEXTROSE 50% 25 GM/50 ML SYRINGE IV ONE (10:30)
[2018-01-22] MEDS ORDERED: VECURONIUM 10 MG VIAL IV ONE ×2 (10:30→11:00)
[2018-01-22] MEDS ORDERED: SODIUM CHLORIDE 0.9% 1,000 ML IV STA ×2 (10:33→12:00)
[2018-01-22] MEDS ORDERED: CHARCOAL AQUEOUS 25 GM/120 ML BOTTLE NG STA (10:33)
[2018-01-22] MEDS ORDERED: NALOXONE 0.4 MG/ML VIAL IV PRN (10:33)
[2018-01-22] MEDS ORDERED: ETOMIDATE 20 MG/10 ML VIAL IV ONE (10:35)
[2018-01-22] MEDS ORDERED: DEXTROSE 5% NACL 0.45% 1,000 ML IV SCH (11:00)
[2018-01-22 11:03] LABS: Basophils % 0.8 % (0.0-0.8); Eosinophils # 0.4 10*3/uL (0.0-0.87); Hematocrit 35.7 VOL% (42.0-52.0); Immature Granulocytes % 0.4 %; Immature Granulocytes Absolute 0.02 #; Lymphocytes # 1.5 10*3/uL (1.4-4.0); Lymphocytes % 29.7 % (21.2-54.2); Mean Corpuscular HGB Conc 33.6 GM/DL (32-36); Mean Corpuscular Hemoglobin 28 PG (27-34); Mean Corpuscular Volume 83.4 FL (87-102); Mean Platelet Volume 9.2 FL (9.6-12.0); Monocytes # 0.5 10*3/uL (0.11-0.8); Monocytes % 9.6 % (1.7-12.7); Neutrophils # 2.5 10*3/uL (1.4-7.4); Neutrophils % 50.5 % (38.7-73.9); Platelet Count 194 T/CUMM (130-400); Red Blood Count 4.28 MC/CUMM (3.8-5.5); Red Cell Distribution Width 12.2 % (9.3-17.3); White Blood Count 4.9 T/CUMM (4-12)
[2018-01-22 11:11] LABS: INR 0.9; PT Patient Result 9.4 SECS
[2018-01-22 11:11] LABS: ABG Base Excess 3.3 MMOL/L (-2.5-2.5); ABG HCO3 27.4 MMOL/L (20-26); ABG Oxygen Saturation 99.8 % (95-100); ABG PH 7.415 (7.35-7.45); ABG TCO2 25.6 MMOL/L (23-27)
[2018-01-22 11:19] LABS: Alanine Aminotransferase 24 U/L (16-61); Albumin 2.6 G/DL (3.4-5.0); Alkaline Phosphatase 130 U/L (45-117); Aspartate Amino Transferase 19 U/L (0-37); Bilirubin,Total < 0.39 MG/DL (0.2-1.0); Blood Urea Nitrogen 30 MG/DL (7-18); Calcium 8.7 MG/DL (8.5-10.1); Glucose 185 MG/DL (74-106); Osmolality,Calculated 285.7 MOS/KG (273-304); Potassium 3.4 MMOL/L (3.5-5.1); Sodium 138 MMOL/L (136-145); Total Protein 6.9 G/DL (6.4-8.3)
[2018-01-22 11:21] LABS: Lactic Acid 2.6 MMOL/L (0.4-2.0)
[2018-01-22 11:28] LABS: Acetaminophen < 2.0 UG/ML (10-30); Lithium < 0.2 MMOL/L (0.6-1.2); Salicylate < 2.8 MG/DL (2.8-20)
[2018-01-22] MEDS: PROPOFOL 1,000 MG/100 ML BOTTLE IV SCH ×3 (11:38→19:06)
[2018-01-22 11:41] LABS: Apearance,Urine CLEAR (Clear); Bacteria,Urine Occasional /HPF (Few); Bilirubin,Urine Negative (Negative); Blood, Urine Small mg/dL (Negative); Glucose,Urine (UA) >=500 mg/dL (Negative); Hyaline Casts,Urine 6 /LPF (0-3); Ketones,Urine Negative (Negative); Mucus,Urine Occasional /LPF (Occasional); Nitrite,Urine Negative (Negative); Protein,Urine 100 MG/DL; RBC,Urine 1 /HPF (0-4); Urine Color Yellow (Yellow); Urine Specific Gravity 1.016 (1.001-1.035); Urine Urobilinogen < 2.0 EU/DL (0.2-1.0); WBC,Urine 1 /HPF (0-6)
[2018-01-22 11:44] LABS: Barbiturates Screen,Urine Negative (Negative); Benzodiazepines Screen,Urine Negative (Negative); Cannabinoid Screen,Urine Negative (Negative); Opiate Screen,Urine Negative (Negative); Phencyclidine Screen,Urine Negative (Negative)
[2018-01-22] MEDS ORDERED: ACETAMINOPHEN 325 MG TABLET PO PRN (12:15)
[2018-01-22] MEDS ORDERED: ONDANSETRON 4 MG/2 ML VIAL IV PRN (12:15)
[2018-01-22] MEDS ORDERED: LACTULOSE 20 GM/30 ML UDCUP PO PRN (12:15)
[2018-01-22] MEDS ORDERED: ALBUTEROL 2.5 MG/3 ML NEB RESP TX PRN (12:15)
[2018-01-22] MEDS: ENOXAPARIN 40 MG/0.4 ML SYRINGE SUBCUT SCH (14:01)
[2018-01-22] MEDS: PANTOPRAZOLE 40 MG VIAL IV SCH (14:01)
[2018-01-22] MEDS ORDERED: MORPHINE 4 MG/1 ML VIAL IV PRN (14:22)
[2018-01-22] MEDS ORDERED: GLUCAGON 1 MG VIAL IM PRN (14:23)
[2018-01-22] MEDS ORDERED: DEXTROSE 50% 25 GM/50 ML SYRINGE IV PRN (14:23)
[2018-01-22] MEDS ORDERED: hydrALAZINE 20 MG/1 ML VIAL IV PRN (14:52)
[2018-01-22] MEDS: INSULIN LISPRO 100 UNIT/ML SUBCUT SCH (18:46)
[2018-01-22] MEDS: SODIUM CHLORIDE 0.45% 1,000 ML IV SCH (18:48)
[2018-01-22 20:32] LABS: Calcium 7.8 MG/DL (8.5-10.1); Osmolality,Calculated 291.5 MOS/KG (273-304); Potassium 3.2 MMOL/L (3.5-5.1)
[2018-01-22] MEDS ORDERED: POTASSIUM CHLORIDE 20 MEQ TABLET PO ONE (20:47)
[2018-01-22] MEDS ORDERED: SODIUM CHLORIDE 0.9% 1,000 ML IV ONE (21:19)
[2018-01-22] MEDS: LACOSAMIDE 50 MG TABLET PO SCH (21:56)
[2018-01-22] MEDS: levETIRAcetam 500 MG TABLET PO SCH (21:57)
[2018-01-22] MEDS: DOCUSATE SODIUM 100 MG CAPSULE PO SCH (21:57)
[2018-01-23] MEDS: INSULIN LISPRO 100 UNIT/ML SUBCUT SCH ×4 (00:15→21:23)
[2018-01-23] MEDS: PROPOFOL 1,000 MG/100 ML BOTTLE IV SCH ×2 (00:34→04:45)
[2018-01-23] MEDS: SODIUM CHLORIDE 0.45% 1,000 ML IV SCH ×2 (02:56→09:37)
[2018-01-23 03:49] LABS: ABG Base Excess 1.4 MMOL/L (-2.5-2.5); ABG HCO3 25.7 MMOL/L (20-26); ABG Oxygen Saturation 99.7 % (95-100); ABG PCO2 30.8 MM HG (35-48); ABG TCO2 22.1 MMOL/L (23-27); Allen Test Positive; Pt O2 Delivery Device Ventilator
[2018-01-23 05:35] LABS: Basophils % 0.5 % (0.0-0.8); Eosinophils # 0.4 10*3/uL (0.0-0.87); Eosinophils % 7.4 % (0.00-10.9); Hematocrit 25.3 VOL% (42.0-52.0); Hemoglobin 8.6 GM/DL (14.0-18.0); Immature Granulocytes % 0.3 %; Immature Granulocytes Absolute 0.02 #; Lymphocytes # 1.1 10*3/uL (1.4-4.0); Lymphocytes % 18.3 % (21.2-54.2); Mean Corpuscular Hemoglobin 28 PG (27-34); Mean Platelet Volume 9.6 FL (9.6-12.0); Monocytes # 0.5 10*3/uL (0.11-0.8); Neutrophils # 3.8 10*3/uL (1.4-7.4); Neutrophils % 64.5 % (38.7-73.9); Platelet Count 150 T/CUMM (130-400); Red Blood Count 3.05 MC/CUMM (3.8-5.5); Red Cell Distribution Width 12.6 % (9.3-17.3); White Blood Count 5.9 T/CUMM (4-12)
[2018-01-23 05:45] LABS: Albumin 1.9 G/DL (3.4-5.0); Bilirubin,Total 0.4 MG/DL (0.2-1.0); Calcium 7.4 MG/DL (8.5-10.1); Osmolality,Calculated 283.5 MOS/KG (273-304); Potassium 3.7 MMOL/L (3.5-5.1); Prealbumin 16.3 MG/DL (20-40); Total Protein 5.4 G/DL (6.4-8.3)
[2018-01-23] MEDS: levETIRAcetam 500 MG TABLET PO SCH ×2 (07:50→21:24)
[2018-01-23] MEDS: FUROSEMIDE 40 MG TABLET PO SCH (07:50)
[2018-01-23] MEDS: LISINOPRIL 20 MG TABLET PO SCH (07:50)
[2018-01-23] MEDS: LACOSAMIDE 50 MG TABLET PO SCH ×2 (07:50→21:24)
[2018-01-23 07:59] LABS: ABG Base Excess -0.4 MMOL/L (-2.5-2.5); ABG HCO3 24.1 MMOL/L (20-26); ABG Oxygen Saturation 98.9 % (95-100); ABG PCO2 42.7 MM HG (35-48); ABG PH 7.374 (7.35-7.45); ABG TCO2 22.9 MMOL/L (23-27)
[2018-01-23] MEDS ORDERED: INFLUENZA VIRUS VACCINE 0.5 ML SYRINGE IM ONE (09:00)
[2018-01-23] MEDS ORDERED: PNEUMOCOCCAL VACCINE (23 VALENT) 0.5 ML VIAL IM ONE (09:00)
[2018-01-23] MEDS: ASPIRIN EC 81 MG TABLET PO SCH (09:06)
[2018-01-23] MEDS: DOCUSATE SODIUM 100 MG CAPSULE PO SCH ×2 (09:06→21:24)
[2018-01-23] MEDS ORDERED: DEXTROSE 5% NACL 0.45% 1,000 ML IV SCH (10:30)
[2018-01-23 10:52] LABS: % Iron Saturation 7.4 % (18-50); Ferritin 85.4 ng/ml (26-388)
[2018-01-23 11:45] LABS: Folate 16.8 NG/ML (5.4-24.0)
[2018-01-23] MEDS: ENOXAPARIN 40 MG/0.4 ML SYRINGE SUBCUT SCH (13:04)
[2018-01-23] MEDS: PANTOPRAZOLE 40 MG TABLET PO SCH (13:04)
[2018-01-23] MEDS: PANTOPRAZOLE 40 MG VIAL IV SCH (14:08)
[2018-01-23] MEDS ORDERED: INSULIN LISPRO 100 UNIT/ML SUBCUT SCH (16:00)
[2018-01-24] MEDS: INSULIN LISPRO 100 UNIT/ML SUBCUT SCH ×2 (08:45→11:21)
[2018-01-24] MEDS: levETIRAcetam 500 MG TABLET PO SCH (08:46)
[2018-01-24] MEDS: FUROSEMIDE 40 MG TABLET PO SCH (08:46)
[2018-01-24] MEDS: DOCUSATE SODIUM 100 MG CAPSULE PO SCH (08:46)
[2018-01-24] MEDS: ASPIRIN EC 81 MG TABLET PO SCH (08:46)
[2018-01-24] MEDS: LACOSAMIDE 50 MG TABLET PO SCH (08:46)
[2018-01-24] MEDS: LISINOPRIL 20 MG TABLET PO SCH (08:46)
[2018-01-24] MEDS: INSULIN NPH 100 UNIT/ML SUBCUT SCH ×2 (08:46→11:21)
[2018-01-24] MEDS: PANTOPRAZOLE 40 MG TABLET PO SCH (08:46)
[2018-01-24] MEDS ORDERED: INSULIN GLARGINE 100 UNIT/ML SUBCUT SCH (09:00)
[2018-01-24 09:15] VITALS: BP 163/98
[2018-01-24] MEDS: ENOXAPARIN 40 MG/0.4 ML SYRINGE SUBCUT SCH (11:59)
== END 2018-01-24 13:58 | disposition home or self-care (01) | DRG 812 ==
LOC: EDUNIT# → EDBD → N.ED 10:24 → SUATTDRO 12:15 → N.EDINP 12:15 → N.ICU 13:12 → N.5E 01-23 15:33
PROVIDERS: ADMIT Internal Medicine; ATTEND Internal Medicine